=== PATIENT | male | born 1950 | race Caucasian/White ===

== ENCOUNTER 2020-10-21 16:51 | Outpatient (REF) | payer MEDICARE, SELFPAY ==
[2020-10-21 20:47] LABS: Abs Immature Grans 0.03 10^3/uL (0.0-0.06); Absolute Basophil Count 0.05 10^3/uL (0.0-0.2); Absolute Eosinophil Count 0.16 10^3/uL (0.0-0.7); Absolute Lymphocyte Count 1.52 10^3/uL (1.2-3.4); Absolute Monocyte Count 0.74 10^3/uL (0.1-0.8); Absolute Neutrophil Count 6.69 10^3/uL (1.2-6.7); Basophils % 0.5; Eosinophils % 1.7; HCT 44.8 % (40.0-50.0); HGB 14.7 g/dL (13.5-17.5); Immature Grans % 0.3; Lymphocytes % 16.5; MCH 29.9 pg (27.0-33.0); MCHC 32.8 % (32.0-36.0); MCV 91.1 fL (80-95); Monocytes % 8.1; Neutrophils % 72.9; Nucleated RBC 0 %; Platelet Count 218 10^3/uL (130-400); RBC 4.92 10^6/uL (4.36-5.78); RDW 12.3 % (11.8-14.1); RDW-SD 40.9 fL; WBC 9.19 10^3/uL (4.4-10.8)
[2020-10-21 21:12] LABS: ALT 16 U/L (16-63); AST 11 U/L (15-37); Albumin 3.8 g/dL (3.4-5.0); Alkaline Phosphatase 79 U/L (46-116); Anion Gap 7.8 mmol/L (3-11); BUN 20 mg/dL (7-18); Bilirubin, Total 0.6 mg/dL (0.2-1.0); CO2 30.2 mmol/L (21.0-32.0); CREATININE 1.4 mg/dL (0.70-1.30); Calcium 9.1 mg/dL (8.5-10.1); Calculated LDL 115 mg/dL (<100); Chloride 107 mmol/L (98-107); Cholesterol 189 mg/dL (<200); Estimated GFR 50.25 (mL/min/1.73m2); Glucose 110 mg/dL (74-106); HDL Cholesterol 41 mg/dL (40-60); Potassium 4.3 mmol/L (3.5-5.1); Sodium 145 mmol/L (136-145); Total Protein 6.8 g/dL (6.4-8.2); Triglyceride 168 mg/dL (<150)
[2020-10-21 21:19] LABS: Amylase 31 U/L (25-115); Lipase 106 U/L (73-393)
== END 2020-10-21 16:52 | disposition home or self-care (01) ==
LOC: NCHCN 16:51
PROVIDERS: PCP Family Medicine; Visit Provider Nurse Practitioner Family
DX: Z13.220 Encounter for screening for lipoid disorders (principal); R10.11 Right upper quadrant pain
CPT/HCPCS: 80053; 80061; 83690; 82150; 85025

== ENCOUNTER 2020-10-24 01:45 | Outpatient (CLI) | payer MEDICARE, OTHER, SELFPAY ==
--- NOTE | 2020-10-24 | DI.US_ITS ---
Exam(s) US ABDOMEN EXAM: US ABDOMEN CLINICAL HISTORY: RUQ PAIN, INTERMITTENT, R10.11, ? GALLSTONES TECHNIQUE: Ultrasound of complete upper abdomen performed using standard protocol. COMPARISON: CT ABD/PELVIS WO W CONTRAST from 11/03/2012 CT ABD/PELVIS WO W CONTRAST from 11/03/2012 FINDINGS: There is no ascites evident. LIVER: There are no hepatic lesions evident nor obvious dilatation of intrahepatic ducts. GALLBLADDER/BILIARY: There are multiple small gallstones in the gallbladder lumen. Gallbladder wall is slightly thickened. The common hepatic duct isnot dilated, measuring 3-4mm at the level of teresa hepatis. PANCREAS: There is no evidence of pancreatic mass nor dilatation of the pancreatic duct. SPLEEN: The spleen is not enlarged and there are no intrasplenic lesions evident. KIDNEYS:Both kidneys exhibit normal size and cortical thickness. No for significant findings in the right kidney. However, there is mild-moderate hydronephrosis of the left kidney noted. No significa nt narrowing of the cortical mantle. ABDOMINAL AORTA: There is no evidence of abdominal aortic aneurysm. IVC: Normal diameter where visualized. IMPRESSION: 1. Cholelithiasis. Also thickening of gallbladder wall. Correlation any clinical signs of acute ch olecystitis is recommended. The common hepatic duct is not dilated. 2. Unilateral left-sided hydronephrosis. This requires workup. 3. There is no ascites. DATA REPOSITORY:
== END 2020-10-24 02:05 ==
PROVIDERS: PCP Family Medicine; Visit Provider Nurse Practitioner Family
DX: K80.20 Calculus of gallbladder without cholecystitis without obstruction (principal); N13.30 Unspecified hydronephrosis
CPT/HCPCS: 76700

== ENCOUNTER → 2020-11-11 10:16 | Outpatient (BNVA) | payer MEDICARE, OTHER, SELFPAY | PROVIDERS: PCP Physician Assistant Medical; Referring Provider Physician Assistant Medical; Visit Provider Surgery | DX: K80.20 Calculus of gallbladder without cholecystitis without obstruction (principal); K57.30 Diverticulosis of large intestine without perforation or abscess without bleeding | CPT/HCPCS: 99203 ==

== ENCOUNTER 2020-11-18 02:47 | Outpatient (CLI) | payer MEDICARE, SELFPAY ==
[2020-11-18 13:05] LABS: Source Nasal/Nares
[2020-11-18 20:17] LABS: COVID-19 PCR Negative (Negative)
== END 2020-11-18 02:48 | disposition home or self-care (01) ==
PROVIDERS: PCP Physician Assistant Medical; Visit Provider Surgery
DX: Z20.822 Contact with and (suspected) exposure to COVID-19 (principal); Z01.818 Encounter for other preprocedural examination
CPT/HCPCS: 87635

== ENCOUNTER 2020-11-19 06:16 | Day surgery (SDC) | payer MEDICARE, OTHER, SELFPAY ==
[2020-11-19] VITALS (7 sets, daily range): BP systolic 104–135; BP diastolic 57–83; PULSE 67–73; RESP 16–23; TEMP 36.4–36.5; O2SAT 96–100; BMI 30.7
--- NOTE | 2020-11-19 04:44 | W.ANESPRE ---
General Info Date of Service Date Performed: 11/19/20 Height: 5 ft 4 in Weight: 81.363 kg Body Mass Index (BMI): 30.7 Surgical Procedure: Operation Date: 11/19/20 07:40 Proposed Procedures Side Surgeon p Cholecystectomy Laparoscopic Viki Son, DO Meds Allergies and Home Medications Allergies Allergy/AdvReac Type Severity Reaction Status Date / Time No Known Allergies Allergy Unverified 11/19/20 06:31 Home Medication Medication Instructions Recorded Unknown [No Known Home Meds] 01/20/13 Current Visit Medications: Current Medications Generic Name Dose Route Start Last Admin Trade Name Freq PRN Reason Stop Dose Admin Acetaminophen 1,000 mg 11/19/20 06:00 Acetaminophen 500 Mg Tab PO 11/19/20 16:00 PREOP JANA Gabapentin 300 mg 11/19/20 06:00 Gabapentin 300 Mg Cap PO 11/19/20 16:00 PREOP JANA Ringer's Solution 1,000 mls @ 80 mls/hr 11/19/20 06:00 IV 12/18/20 23:59 INFUSION JANA Cefazolin Sodium 2,000 mg/ 100 mls @ 200 mls/hr 11/19/20 06:00 Sodium Chloride IVPB 11/19/20 16:00 PREOP JANA IV Miscellaneous Supplies 1 each 11/19/20 06:00 Iv Access IV 12/18/20 23:59 DIRECTED JANA Sodium Chloride 0 ml 11/19/20 06:00 Normal Saline Flush 10 Ml Syr IV 12/18/20 23:59 PRN PRN Sodium Chloride 0 ml 11/19/20 06:00 Normal Saline 10 Ml Vial IJ 12/18/20 23:59 DIRECTED PRN Sterile Water 0 ml 11/19/20 06:00 Water,Injection,Sterile 10 Ml Vial IJ 12/18/20 23:59 DIRECTED PRN PFSH Active Problems Active Problems: Problem Status Onset Code Cholelithiasis K80.20 Sigmoid diverticulum K57.30 Prostatitis N41.9 Medical History Medical History Cholelithiasis Dental caries Hematuria Prostatitis Right upper quadrant pain Sigmoid diverticulum Tobacco Smoking/Tobacco Use Status: Never Alcohol Alcohol Intake: never Substance Use Substance use: Never Substance use type: does not use Vital Signs and Lab Results Vital Signs Most Recent Vital Signs in EMR: Temp Pulse Resp BP Pulse Ox 36.4 C L 73 16 135/83 99 11/19/20 06:26 11/19/20 06:26 11/19/20 06:26 11/19/20 06:26 11/19/20 06:26 Lab Results Blood Type / Crossmatch: No Data to Display Complete Blood Count: White Blood Count 9.19 10^3/uL (4.4-10.8) 10/21/20 16:30 10/21/20 Red Blood Count 4.92 10^6/uL (4.36-5.78) 10/21/20 16:30 10/21/20 Hemoglobin 14.7 g/dL (13.5-17.5) 10/21/20 16:30 10/21/20 Hematocrit 44.8 % (40.0-50.0) 10/21/20 16:30 10/21/20 Platelet Count 218 10^3/uL (130-400) 10/21/20 16:30 10/21/20 Complete Metabolic Panel: Sodium Level 145 mmol/L (136-145) 10/21/20 16:30 10/21/20 Potassium Level 4.3 mmol/L (3.5-5.1) 10/21/20 16:30 10/21/20 Chloride Level 107 mmol/L (98-107) 10/21/20 16:30 10/21/20 Carbon Dioxide Level 30.2 mmol/L (21.0-32.0) 10/21/20 16:30 10/21/20 Blood Urea Nitrogen 20 mg/dL (7-18) H 10/21/20 16:30 10/21/20 Creatinine 1.4 mg/dL (0.70-1.30) H 10/21/20 16:30 10/21/20 Estimated GFR/1.73 m2 50.25 (mL/min/1.73m2) 10/21/20 16:30 10/21/20 Calcium Level 9.1 mg/dL (8.5-10.1) 10/21/20 16:30 10/21/20 Albumin 3.8 g/dL (3.4-5.0) 10/21/20 16:30 10/21/20 Glucose Level 110 mg/dL (74-106) H 10/21/20 16:30 10/21/20 Liver Function Panel: Alanine Aminotransferase (ALT/SGPT) 16 U/L (16-63) 10/21/20 16:30 10/21/20 Aspartate Amino Transf (AST/SGOT) 11 U/L (15-37) L 10/21/20 16:30 10/21/20 Coagulation Panel: No Data to Display Cardiac Panel: No Data to Display Arterial Blood Gas: No Data to Display Venous Blood Gas: No Data to Display Pancreas Panel: Amylase Level 31 U/L (25-115) 10/21/20 16:30 10/21/20 Lipase 106 U/L (73-393) 10/21/20 16:30 10/21/20 Thyroid Panel: No Data to Display Infectious Disease: Coronavirus (COVID-19)(PCR) Negative (Negative) 11/18/20 09:11 11/18/20 Coronavirus 2019 Source Nasal/Nares 11/18/20 09:11 11/18/20 Blood Cultures: No Data to Display Toxicology Panel: No Data to Display Anesthesia Assessment and Plan Anesthesia History Personal History: No History of Anesthesia Complications Family History: No Family History of Anesthesia Complications Exercise Tolerance Exercise Tolerance: Metabolic Equivalents>4 Cardiac & Pulmonary Exam Cardiac Exam: Normal S1/S2 Heart Sounds Pulmonary Exam: Clear Bilateral Breath Sounds Airway Exam Known Difficult Airway: No Mallampati Class: 3 Mouth Opening: Normal (> 3cm) Thyromental Distance: Greater than 3 cm Neck Range of Motion: Limited ROM Neck Circumference: Normal Teeth Condition: Normal Dentition ASA Classification ASA Score: ASA 2 Emergency Case?: No NPO Status NPO Status: NPO Clears >2 hours, Solids >8 hours Anesthesia Plan Resuscitation Status: Full Code Anesthesia Technique: General Anesthesia Airway Planned: Natural Airway Monitors Used: Standard Monitors Preoperative Comments:: 70 yo male for lap harpreet for cholelithiasis.
[2020-11-19] MEDS: Gabapentin 300 MG CAP PO (06:38)
[2020-11-19] MEDS: Acetaminophen 500 MG TAB 1000 MG PO (06:38)
[2020-11-19] MEDS: Lactated Ringers 1,000 ML 80 ML IV (06:50)
[2020-11-19] MEDS: ceFAZolin 2,000 MG in Normal Saline 100 ML 200 MG IVPB (07:34)
--- NOTE | 2020-11-19 08:40 | GB_PTH ---
PATIENT: Kei Welch LOC: [facility] U#:[id number] AGE/SX: 70/M ROOM: RE11/19/[address]: Viki Son : 1950 BED: DIS: 11/19/2020 SPEC #: [id number] RECD: 11/19/20 12:28 STATUS: KIRSTY REQ #: [id number] ANDRES: 11/19/20 08:[address]: Viki Son DEPT: Surgical Specimen RECD BY: Melita Schulz ENTERED: 11/19/20 12:28 SP TYPE: GB OTHR DR: Danny Hale Tissues: 1 - GALLBLADDER Procedures: GROSS AND MICRO LEVEL 3 Comments: [id number]
--- NOTE | 2020-11-19 09:01 | W.PM.OP ---
Date of service: 11/19/20 Time of Service: 09:01 Operative Note Operative Note DATE OF PROCEDURE: 11/19/20 PRE-OP DIAGNOSIS: /umbilical hernia POST-OP DIAGNOSIS: same PROCEDURE: lap harpreet SURGEON: Viki Pratt MANAGER BUSINESS PROCESS: Komal Neal ANESTHESIA TYPE: Local By Surgeon and General LMA/ETT Refer to Anesthesia Record ESTIMATED BLOOD LOSS: 5 PATHOLOGY: other COMPLICATIONS: None Patient was transported to: PACU Procedure Description: The pt is seen at the request of there PCP regarding acute on chronic cholecystitis, cholelithiasis. The pt has failed outpt conservative medical measures and is here today for laparoscopic cholecystectomy. Informed consent was obtained, explaining risks and benefits of the procedure including but not limited to bleeding, infection, pneumonia, blood clots, possible damage to bowel, bladder, blood vessels, bile ducts, possible open procedure, complications of general anesthesia and other unforetold complications. PROCEDURE: The patient agrees and is brought to the operative room suite and placed in supine position. Anesthesia was administered per the Department of Anesthesia. The patient did receive IV antibiotics. NG tube and Gilman catheter are placed. The patient was prepped and draped in the usual sterile fashion using DuraPrep scrub solution. Pause for the cause was done. 20 mL of 1% buffered lidocaine was used for local anesthetization. A stab incision was made in the umbilicus and the Verres inserted. Drop test was positive and insufflation was begun. When 15 mm of pressure was noted on the monitor, the Veress was removed and #5 port inserted. The camera was inserted through the port and shows no damage to underlying structures. A 10 mm port was then placed in the epigastric position under direct visualization following creation of local field blocks as well as two 5 mm ports in the right upper quadrant. The gallbladder fundus was grasped and retracted towards the right shoulder. Infundibulum was grasped and retracted laterally. The hepat-duodenal ligament is entered. The cystic duct and artery are dissected out and the most inferior portion of the gallbladder plate is removed from the liver and the critical view of safety was obtained after clearing away all fatty material. Endo Clips were placed across the duct and artery and these structures are divided. The remainder of the gallbladder was excised from the liver bed. The gallbladder was placed in a bag and brought out. Examination of the gallbladder shows indeed the cystic duct and artery to have been divided. The remainder of the abdomen was copiously irrigated with a liter of saline. All saline is removed. There is no bleeding or bile leakage from the liver bed or the clips sites. An EndoClose needle was used to close the 10 mm port site with an 0 Vicryl. All ports and instruments are removed. Patient also had a incidental umbilical hernia. This is repaired with 0 Vicryl. Mesh was not placed for fear of infection. SPonge and needle counts are correct. Pneumoperitoneum is evacuated and the port sites are monitored to make sure there is no bleeding at the time of desufflation. Port sites are irrigated and the skin is closed with 4-0 Monocryl in a running subcuticular fashion. Skin glue sterile dressings are applied. The patient tolerated the procedure well without complications, transferred to the recovery room in stable condition. VIKI PRATT DO
--- NOTE | 2020-11-19 09:09 | PDOC.DSDIS_ITS ---
Discharge Plan Disposition Patient Disposition: HOME Condition: Good Discharge Details Reason For Visit: gallbladder removal/hernia repair Attending Provider: Viki Son Primary Care Provider: Danny Hale Home Meds and New Rx's Prescriptions: New tramadol [Ultram] 50 mg tablet 50 mg PO Q6H PRNQty: 10 RF: 0 ondansetron HCl [Zofran] 4 mg tablet 4 mg PO Q6H PRNQty: 3 RF: 0 ibuprofen 600 mg tablet 600 mg PO Q6H PRNQty: 90 RF: 0 Discharge Instructions Additional Instructions: Care after Gallbladder Surgery -Pain control: For the first 72 hours after surgery, take you pain meds continuously and not just when you have pain. Alternate Tylenol 1000mg by mouth every 8 hours, and Ibuprofen 600mg every 6 hours. Make sure you take ibuprofen with food and not on an empty stomach. Use the tramadol for breakthrough pain- pain that is greater than a 7. - Use ICE! Ice really helps to keep the swelling down, and swelling causes pain. Twenty minutes on, and then off, continuously for the first 72hours. After the first 72hrs, you can just use the Tylenol, ibuprofen or Celebrex, and ice, when you have pain. If you are taking narcotic pain medication, follow the instructions on the label and do not drive. Pain medications can make you very constipated. Make sure you are moving your bowels daily. If not, take Miralax, milk of magnesia or magnesium citrate. - Anesthesia makes you very constipated. Take a dose of milk of magnesia the morning after surgery. ? Use an ice bag for the first 72 hours. This helps to decrease swelling, which causes pain. It is normal to be more sore/painful and swollen towards the end of the day and first thing in the morning. ? Gallbladder surgery can make you very nauseated; use Zofran for nausea, for the first 24 hours. The nausea generally stops after 24 hours. ? Use milk of magnesia or prune juice to prevent constipation (this is a particular side effect of pain medication and anesthesia). Do not allow yourself to become constipated. ? Avoid fatty or greasy foods; introduce these slowly, with care, after about 1 month. High-fat foods include: ? Foods that are fried, like Armenian fries and potato chips ? High-fat meats, such as reddy, bologna, sausage, ground beef, and ribs, pork products ? High-fat dairy products, such as cheese, ice cream, cream, whole milk, and sour cream ? Pizza ? Foods made with lard or butter ? Creamy soups or sauces ? Meat gravies ? Chocolate ? Oils, such as palm and coconut oil ? Skin of chicken or turkey Nuts and nut butters [place]adoes ? Start out eating very small, bland amounts of food. Do not take pain pills on an empty stomach. - You will notice purple discoloration around the incisions. This is the ?skin glue?. This will wear off on its own. It is OK to shower after 24hrs. You do not need to cover the incisions. - -You should walk frequently, gradually, increasing the distance. You may climb stairs, just go slowly. ? Do not go swimming or sit in a hot tub for two weeks. ? There are no stitches to remove. ? Do not drive your car x72hrs and then only if you have no pain and can move freely. Do not drive if you are taking pain narcotic pain medications. ? You may resume sexual activity whenever pain and soreness subside, usually in 2 weeks. ? Do no lift anything over 5 lbs. for two weeks. ? You may return to work in one week, or when you feel able, provided you do not have to do any heavy lifting or prolonged standing. ? You should return to Dr. Son?s office for a post-op appointment about one week after surgery. F/u 12/02 @ 9:30 Surg Asso: [phone] My Medications for pain and nausea are: Celebrex and ultram, and zofran When to Call the Office: ? If the incision becomes red or swollen, or there is more than a little drainage from it. ? If you develop a temperature higher than 100.5 F. ? If your eyes turn yellow ? Vomiting and can?t keep fluids down Activity:: see above Remove Dressings/Wound Care:: 24 hours Shower/Bathe:: 24 hours Diet:: low fat Discharge Orders Discharge Orders: Discharge Order (Routine); Ordered 11/19/20 Ordered By: Viki Son DS: Diagnosis Discharge Diagnosis (1) Cholelithiasis: Status: Acute (2) Umbilical hernia: Status: Acute
--- NOTE | 2020-11-19 10:24 | W.ANESPOSTOP ---
Postoperative Evaluation Date, Time and Location Date Performed: 11/19/20 Time Performed: 10:25 Patient Location: Day Surgery Unit Vital Signs Most Recent Imported Vital Signs: Most Recent Vital Signs Temp Pulse Resp BP Pulse Ox 36.4 C L 72 16 113/64 96 11/19/20 09:48 11/19/20 09:48 11/19/20 09:48 11/19/20 09:48 11/19/20 09:48 Pain Score Most Recent Pain Score: Most Recent Pain Score Pain Level 0 11/19/20 09:48 Assessment Mental Status: Awake (Alert & Oriented to Patient Baseline) Airway and Respiratory Function: Patent airway with normal (patient baseline) respiratory exam Cardiovascular Function: Hemodynamically Stable Hydration Status: Adequately Hydrated Nausea & Vomiting: No Nausea or Vomiting Pain: Pt. Denies Any Pain Peripheral Nerve Block: Patient did not receive a nerve block Postoperative Comments:: slight dizziness with ambulating to bathroom, advised slow movements
--- NOTE | 2020-11-19 10:25 | W.ANESPOSTOP ---
Postoperative Evaluation Date, Time and Location Date Performed: 11/19/20 Time Performed: 10:25 Patient Location: PACU Vital Signs Most Recent Imported Vital Signs: Most Recent Vital Signs Temp Pulse Resp BP Pulse Ox 36.4 C L 72 16 113/64 96 11/19/20 09:48 11/19/20 09:48 11/19/20 09:48 11/19/20 09:48 11/19/20 09:48 Pain Score Most Recent Pain Score: Most Recent Pain Score Pain Level 0 11/19/20 09:48 Assessment Mental Status: Awake (Alert & Oriented to Patient Baseline) Airway and Respiratory Function: Patent airway with normal (patient baseline) respiratory exam Cardiovascular Function: Hemodynamically Stable Hydration Status: Adequately Hydrated Nausea & Vomiting: No Nausea or Vomiting Pain: Pt. Denies Any Pain Peripheral Nerve Block: Patient did not receive a nerve block
== END 2020-11-19 10:48 | disposition home or self-care (01) ==
PROVIDERS: PCP Physician Assistant Medical; Visit Provider Surgery
PROC: 0FT44ZZ Resection of Gallbladder, Percutaneous Endoscopic Approach (ICD-10-PCS; CPT 47562; principal; 2020-11-19 07:30)
DX: K80.10 Calculus of gallbladder with chronic cholecystitis without obstruction (principal)
CPT/HCPCS: 47562; 88304; J0690; J1100; J1885; J2001; J2405; J2704; J3475

== ENCOUNTER → 2020-12-02 09:18 | Outpatient (BNVA) | payer MEDICARE, SELFPAY | PROVIDERS: PCP Physician Assistant Medical; Referring Provider Physician Assistant Medical; Visit Provider Surgery | DX: Z48.815 Encounter for surgical aftercare following surgery on the digestive system (principal); Z90.49 Acquired absence of other specified parts of digestive tract; K42.9 Umbilical hernia without obstruction or gangrene ==

== ENCOUNTER 2022-10-12 13:29 | Outpatient (REF) | payer MEDICARE, SELFPAY ==
[2022-10-12 17:14] LABS: Abs Immature Grans 0.02 10^3/uL (0.0-0.06); Absolute Basophil Count 0.04 10^3/uL (0.0-0.2); Absolute Eosinophil Count 0.14 10^3/uL (0.0-0.7); Absolute Lymphocyte Count 1.22 10^3/uL (1.2-3.4); Absolute Monocyte Count 0.48 10^3/uL (0.1-0.8); Absolute Neutrophil Count 4.78 10^3/uL (1.2-6.7); Basophils % 0.6; Eosinophils % 2.1; HGB 15.4 g/dL (13.5-17.5); Immature Grans % 0.3; Lymphocytes % 18.3; MCH 29.8 pg (27.0-33.0); MCHC 32.8 % (32.0-36.0); MCV 91 fL (80-95); MPV 10.1 fL (8.0-11.0); Monocytes % 7.2; Neutrophils % 71.5; Platelet Count 186 10^3/uL (130-400); RBC 5.17 10^6/uL (4.36-5.78); RDW 12.6 % (11.8-14.1); RDW-SD 41.8 fL; WBC 6.68 10^3/uL (4.4-10.8)
[2022-10-12 17:56] LABS: ALT 22 U/L (16-63); AST 21 U/L (15-37); Albumin 3.9 g/dL (3.4-5.0); Alkaline Phosphatase 87 U/L (46-116); Anion Gap 6.9 mmol/L (3-11); BUN 19 mg/dL (7-18); Bilirubin, Total 0.7 mg/dL (0.2-1.0); C-Reactive Protein 0.12 mg/dL (0.0-0.3); CO2 29.1 mmol/L (21.0-32.0); CREATININE 1.1 mg/dL (0.70-1.30); Calcium 9.4 mg/dL (8.5-10.1); Chloride 105 mmol/L (98-107); Estimated GFR 72.22 (mL/min/1.73m2); Glucose 106 mg/dL (74-106); Potassium 4.9 mmol/L (3.5-5.1); Sodium 141 mmol/L (136-145); Total Protein 7.4 g/dL (6.4-8.2)
[2022-10-14 11:07] LABS: HIV-1/2 Ag & Ab Screen Negative (Negative)
[2022-10-14 11:08] LABS: Hepatitis C Ab w Rflx HCV PCR Negative (Negative)
== END 2022-10-12 13:30 | disposition home or self-care (01) ==
LOC: NCHCN 13:29
PROVIDERS: PCP Physician Assistant Medical; Visit Provider Family Medicine
DX: H35.62 Retinal hemorrhage, left eye (principal); Z00.00 Encounter for general adult medical examination without abnormal findings
CPT/HCPCS: 80053; 86803; 87389; 85025; 86140

== ENCOUNTER 2023-07-30 02:27 | Inpatient (IN) | payer MEDICARE, SELFPAY ==
[2023-07-30] VITALS (107 sets, daily range): BP systolic 127–175; BP diastolic 64–86; PULSE 92–105; RESP 13–35; TEMP 36.4–37.5; O2SAT 85–97
--- NOTE | 2023-07-30 02:30 | RT.EKG_ITS ---
APPROVED REPORT Exam: Resting ECG Reason for Exam: short of breath Patient Location: E HR:103 bpm ECG Measurements Heart Rate 103 AXIS CO 142 P 60 QRSd 93 QRS 65 QT 333 T 19 QTc 436 Conclusion Sinus tachycardia...rate> 99 Inferior infarct, old...Q >35mS, II III aVF
--- NOTE | 2023-07-30 02:45 | DI.CT_ITS ---
Exam(s) CT ABDOMEN PELVIS WO EXAM: CT ABDOMEN PELVIS WO CLINICAL HISTORY: abdominal distention, pain, vomiting, unable to ea. TECHNIQUE: Imaging Protocol: Axial computed tomography images with coronal and sagittal reformatted images were created and reviewed. COMPARISON: CT ABD/PELVIS WO W CONTRAST from 11/03/2012 FINDINGS: ABDOMEN: Lung Bases: Coronary artery calcifications are present. There is a small hiatal hernia. Linear infi ltrates are seen in the lung bases bilaterally. Differential considerations include scarring, atelec tasis or developing pneumonia. Please correlate clinically. Liver: Normal density. No measurable mass. Gallbladder and biliary tract: Status post cholecystectomy. There is no biliary ductal dilatation. Pancreas: Normal density, no abnormal calcifications or inflammatory process. Spleen: Normal. Kidneys: Normal size, contour and axis.No calculi are seen. In the mid left ureter, there is soft ti ssue thickening surrounding the ureter and lying on top of the left psoas muscle (series 3, image 466 ). This measures 2.3 x 2 cm. Proximally, there is marked left hydronephrosis. The left ureter is o f normal caliber distally. No renal mass is identified. Adrenal glands: No mass is seen. Lymph nodes: Within normal limits. Abdominal Aorta: Abdominal portion non-dilated. Atherosclerotic calcification is present. PELVIS: Bladder:There is a catheter in place. Air is seen within the urinary bladder likely reflecting cathet erization. Bowel: No obstruction or bowel wall thickening. The stomach is incompletely distended limiting evalua tion. There is no evidence of appendicitis. Peritoneal cavity: No ascites, collection or mesenteric inflammatory response. No free air. Reproductive organs: The prostate gland is markedly enlarged. Bones: Within normal limits. Soft Tissues: Within normal limits. IMPRESSION: 1. There is marked left hydronephrosis to the level of the mid left ureter. There is surrounding soft tissue of the mid ureter as it overlies the left psoas muscle. Differential considerations include n eoplasm, inflammation or infection. This appears to be the source of the hydronephrosis. No stone is identified. 2. Stranding is seen around the left kidney. This may be secondary to the hydronephrosis. Pyelonephri tis cannot be excluded. Please correlate clinically. 3. Marked enlargement of the prostate gland. 4. Linear infiltrate seen in the lung bases which may represent atelectasis, pneumonia or scarring. P lease correlate with patient's clinical symptoms. 5. No evidence of nephrolithiasis. Unexpected findings RADIATION DOSE DELIVERED: 793.73mGy.cm Total DLP DATA REPOSITORY: All CT scans at this facility are submitted to the National Radiology Data Registry (NRDR) Dose Index Registry (DIR) with the [employer] ([employer]). RADIATION OPTIMIZATION: All CT scans at this facility use at least one of these dose optimization te chniques: automated exposure control; mA and/or kV adjustment per patient size (includes targeted exa ms where dose is matched to clinical indication); or iterative reconstruction.
--- NOTE | 2023-07-30 02:55 | DI.RAD_ITS ---
Exam(s) XR CHEST 1V IN DI DEPT EXAM: XR CHEST 1V IN DI DEPT CLINICAL HISTORY: shortness of breath TECHNIQUE: 2D digital imaging was performed of the chest. One image was obtained. An AP view was ob tained. COMPARISON: No exams were available for comparison FINDINGS: MEDIASTINUM: Normal. HEART: Normal. PULMONARY VASCULATURE: Normal. LUNGS: There is atelectasis seen in the right lung base. PLEURAL SPACE: No pleural effusion or pneumothorax. BONE:Within normal limits for the patient's age. OTHER FINDINGS:Surgical clips are seen in the right upper quadrant of the abdomen which may reflect p rior cholecystectomy. IMPRESSION: No acute pulmonary findings. Right basilar atelectasis. DATA REPOSITORY: RADIATION DOSE DELIVERED:
--- NOTE | 2023-07-30 02:57 | ED.GENADUL_ITS ---
Discharge Plan Disposition Patient Disposition: Admit to [facility] Condition: Improving Discharge Details Chief Complaint: Abd Prob Clinical Impression: Uremic acidosis, Acute renal failure, Acute bilateral obstructive uropathy Primary Care Provider: Danny Hale ED Provider: Tristen Abrams Home Meds and New Rx's Prescriptions: No Action No Known Home Meds HPI General Date/Time Provider Initiated Documentation: 07/30/23 02:39 . HPI Narrative: The patient is a 72-year-old male, who presents to the emergency department this evening from his plane flight home from the [facility], complaining of the inability to eat or drink for almost the entire week he was there, weakness, and now shortness of breath. The patient had some abdominal pain and nausea which began on Wednesday while in the [facility]. Prior to this the patient has felt relatively well. His says that he spent most of the rest of the week in bed with very little to eat or drink. He did have some vomiting initially on Wednesday when the diffuse abdominal discomfort and nausea began, but had no further vomiting or diarrhea throughout the week. The patient tells me that his last bowel movement was this morning, but that it was quite small. The patient has made very little urine today according to the , less than 100 cc. The patient denies having abdominal pain now but says that he feels somewhat distended. The shortness of breath began within the last 24 hours. There have been no fevers or chills reported. The patient denied any urinary symptoms. The patient denies any chest pain. Related Data Home Medications Medication Instructions Recorded Confirmed Unknown [No Known Home Meds] 12/02/20 07/30/23 Allergies Allergy/AdvReac Type Severity Reaction Status Date / Time No Known Allergies Allergy Unverified 07/30/23 02:32 General Stated Complaint: Abd Prob LANDY: 3 Exam Const General: cooperative, acute distress mild, ill appearing and lethargic Eyes General: appearance normal, both eyes and all related structures Conjunctivae: conjunctivae normal Sclera: sclerae normal Pupils: PERRL Neck Neck: full ROM, no lymphadenopathy and JVD Resp Effort & Inspection: tachypneic Auscultation: clear to auscultation bilaterally Cardio Jugular venous pressure: JVD elevated Rate: tachycardic Rhythm: regular rhythm Heart Sounds: S1 normal and S2 normal GI Inspection: distended Palpation: firm and nontender Auscultation: high-pitched sounds Skin General skin exam: no rashes or lesions noted and turgor normal Lesions: no lesions Rashes: no rashes Trauma: no lacerations or abrasions Neuro General: patient alert, patient awake, patient oriented x3 and CN's II-XI intact bilaterally Cranial Nerves: CN's II-XI intact bilaterally Speech: speech normal Motor: no movement abnormalities noted and strength abnormal Sensory Exam: no sensory deficits noted Extrem General: normal to inspection, full ROM and no clubbing, cyanosis or edema Course Vital Signs Vital signs: Vital Signs Temperature 36.4 C L 07/30/23 02:33 Pulse 103 H 07/30/23 02:33 Respiratory Rate 20 07/30/23 02:33 Blood Pressure 175/81 H 07/30/23 02:33 Pulse Oximetry 92 07/30/23 02:33 Temperature 36.4 C L 07/30/23 02:33 Temperature Source Tympanic 07/30/23 02:33 Pulse 102 H 07/30/23 02:34 Pulse 105 H 07/30/23 02:40 Respiratory Rate 23 07/30/23 02:40 Respiratory Effort Labored 07/30/23 02:41 Blood Pressure 175/81 H 07/30/23 02:34 Blood Pressure Mean 110 07/30/23 02:34 Blood Pressure Position Supine 07/30/23 02:33 Pulse Oximetry 90 L 07/30/23 02:40 Oxygen Delivery Method Room Air 07/30/23 02:33 Oxygen Flow Rate 0 07/30/23 02:33 Pain Level 0 07/30/23 02:33 Comment 84.1 kg weight 07/30/23 02:33 Medical Decision Making The patient was seen and examined. He does appear to be lethargic and is tachypneic with some mild hypoxemia here in the emergency department. The patient is hypertensive and tachycardic with a mildly low temperature. His respiratory rate is not consistent with Kussmaul or Samuel-Sherwood breathing, but his respiratory rate is quite fast considering he has normal auscultations in his lung lal bilaterally. I question whether or not the respiratory symptoms are simply a function of a larger constitutional pathology. The patient's abdomen is clearly distended with high-pitched bowel sounds. I would be surprised if there is not some form of an obstructive pathology within his bowel . The patient had a bladder scan obtained, after the report that he had produced almost no urine today. The initial bladder scans revealed retained urine greater than 900 cc. I have asked the Garcia catheter be placed to see if there is a copious amount of retained urine. When concerned that the patient could potentially be acidotic, which may be driving some of his respiratory effort. The patient has had no reported fevers or chills and is relatively hypertensive, leading me to think that this does not necessarily represent a septicemia. Given the patient's age, he could have some problems with myocardial function with this much physiologic stress, and could be having some subendocardial ischemia. The patient's EKG is a sinus tachycardia but there are no repolarization abnormalities that would be consistent with acute ischemia or pattern injury ischemia. The patient will have a full set of laboratory workup, a chest x-ray, and a noncontrasted CT scan of the abdomen pelvis to determine if there is an underlying obstructive process in either the urine collecting system or more likely the bowels. The patient will almost assuredly require admission as he is unlikely to have stopped producing urine without endorgan damage to his kidneys. He is also oxygen requiring to maintain a relatively normal oxygen level and respiratory pattern here in the emergency room. Further disposition planning can be started once more data has been obtained. 0320 - The garcia catheter placement produced more than 2 L of a brown/tea colored urine. There was clearly going to be some significant injury to the kidney based on this postobstructive uropathy. Other labs continue to be pending at this time. The patient is much less distended after the Garcia catheter was placed. We will continue on with a noncontrasted CT scan of the abdomen pelvis to see if there is concomitant ileus or bowel obstruction related to this uropathy. [id number] - I discussed this case with the on-call nephrology fellow and the hospitalist service at [facility]. The nephrology fellow felt like the patient was not a candidate for urgent or emergent dialysis, despite the fact that the patient has some encephalopathy related to his uremia. The case was then discussed with the hospitalist service to agree that they would be willing to take the patient, however the transfer center and medical artist had asked that the patient have 4-hour repeat basic metabolic profile and VBG to determine if the patient were improving these levels sufficiently. And then to be discussed with our hospitalist service whether or not they be willing to keep the patient here at our facility. The patient did have a normal improvement in their BUN and creatinine levels from 120/13 to 110/10. The patient does continue to put out approximately 850 cc of urine over the course of the last 1.5 hours. The patient has continued to have an oxygen saturation in the low 90s on 2 L but the respiratory rate, blood pressure, and heart rate have all improved. The patient says that he is feeling better. He continues to be mildly encephalopathic with weakness and a diminished voice. I will discuss the case with the [facility] hospitalist here at an [facility] and determine if they be willing to admit the patient for observation, or whether or not they would like me to recontact the [facility] about the possibility of transfer. 07 - I discussed the case with Dr. Jones, from the hospitalist service, who agreed to admit the patient for observation and hydration to determine if his renal function will improve with conservative therapy. I will being LR at 150 cc/hr for hydration after discussion with the hospitalist. Quality:SDOH Health Related Social Needs: No Data to Display PFSH All Active Problems (Updated 07/30/23 @ 07:39 by Tristen Abrams MD) Acute bilateral obstructive uropathy (Acute) Acute renal failure (Acute) Uremic acidosis (Acute) Umbilical hernia (Acute) Cholelithiasis (Acute) Sigmoid diverticulum (Acute) Prostatitis (Acute) Medical History (Updated 07/30/23 @ 07:39 by Tristen Abrams MD) Right upper quadrant pain Hematuria Dental caries Social History Smoking/Tobacco Use Status: Never Smoking risk assessment performed?: Yes Alcohol Intake: former Drug use: Never Substance use type: does not use Do you feel safe at home: Yes Do you feel safe in your relationship?: Yes
[2023-07-30 03:04] LABS: BE (Venous) -10 mmol/L (-2-3); HCO3 (Venous) 16 mmol/L (23-28); O2 Sat (Venous) 72 %; TCO2 (Venous) 15 mmol/L (24-29); pCO2 (Venous) 32 mmHg (41-51); pH (Venous) 7.31 (7.31-7.41); pO2 (Venous) 42 mmHg
[2023-07-30 03:05] LABS: Lactate 1.8 mmol/L (0.6-1.4)
[2023-07-30 03:13] LABS: Abs Immature Grans 0.33 10^3/uL (0.0-0.06); Absolute Eosinophil Count 0.02 10^3/uL (0.0-0.7); Absolute Lymphocyte Count 0.81 10^3/uL (1.2-3.4); Absolute Monocyte Count 2.03 10^3/uL (0.1-0.8); Basophils % 0.4; Eosinophils % 0.1; HCT 43.8 % (40.0-50.0); HGB 15.1 g/dL (13.5-17.5); Immature Grans % 1.7; Lymphocytes % 4.2; MCH 30.6 pg (27.0-33.0); MCHC 34.5 % (32.0-36.0); MCV 89 fL (80-95); MPV 9.8 fL (8.0-11.0); Monocytes % 10.5; Neutrophils % 83.1; Platelet Count 209 10^3/uL (130-400); RBC 4.93 10^6/uL (4.36-5.78); RDW 13.3 % (11.8-14.1); WBC 19.36 10^3/uL (4.4-10.8)
[2023-07-30 03:22] LABS: Bilirubin Negative (Negative); Blood Trace-intact (Negative); Clarity Sl Cloudy (Clear); Glucose Negative (Negative); Ketones Negative (Negative); Leukocyte Esterase Negative (Negative); Nitrite Negative (Negative); Specific Gravity >= 1.030 (1.005-1.025); Urobilinogen 0.2 mg/dL (Up to 0.2)
[2023-07-30 03:24] LABS: ALT 22 U/L (16-63); AST 9 U/L (15-37); Albumin 3.2 g/dL (3.4-5.0); Alkaline Phosphatase 121 U/L (46-116); Bilirubin, Total 0.9 mg/dL (0.2-1.0); Chloride 94 mmol/L (98-107); Estimated GFR 3.45 (mL/min/1.73m2); Glucose 124 mg/dL (74-106); Lipase 36 U/L (16-77); Magnesium 2.8 mg/dL (1.8-2.4); Potassium 4.7 mmol/L (3.5-5.1); Sodium 133 mmol/L (136-145); Total Protein 7.8 g/dL (6.4-8.2); Troponin I < 50 ng/L (< or =60)
[2023-07-30 03:28] LABS: Absolute Basophil Count 0.08 10^3/uL (0.0-0.2); Absolute Neutrophil Count 16.09 10^3/uL (1.2-6.7); Diff Comment Diff Reviewed; RBC Morphology Normal
[2023-07-30 03:30] LABS: Bacteria Rare HPF (Negative); C & S Indicated? No; Casts Negative LPF (Negative); Crystals Negative HPF (Negative); Epithelial Cells Negative HPF (Negative); Mucus Negative (Negative); RBC 0-2 HPF (0-2); WBC Negative HPF (0-5)
[2023-07-30] MEDS: Lidocaine 2% Jelly 11 ML SYR UR (03:31)
[2023-07-30 03:33] LABS: NT-proBNP 473 pg/mL (<300)
[2023-07-30 03:38] LABS: BUN 120 mg/dL (7-18); CREATININE 13.8 mg/dL (0.70-1.30)
[2023-07-30 04:00] LABS: COVID-19 PCR Negative (Negative); Influenza A PCR Negative (Negative); Influenza B PCR Negative (Negative); RSV PCR Negative (Negative)
[2023-07-30 04:11] LABS: Source Nasopharynx
--- NOTE | 2023-07-30 04:52 | DI.VRAD_ITS ---
PROCEDURE INFORMATION: Exam: XR Chest Exam date and time: 07/30/2023 4:00 AM Age: 72 years old Clinical indication: Shortness of breath TECHNIQUE: Imaging protocol: Radiologic exam of the chest. Views: 1 view. COMPARISON: CT ABDOMEN PELVIS WO 07/30/2023 3:53 AM FINDINGS: Lungs: Apical lordotic projection. Subsegmental atelectasis at the base of the right lung. Lungs otherwise clear. Pleural spaces: Unremarkable. No pleural effusion. No pneumothorax. Heart/Mediastinum: Unremarkable. No cardiomegaly. Bones/joints: Unremarkable. Gastrointestinal tract: Incompletely visualized gas distended colon in the upper abdomen. IMPRESSION: Incompletely visualized gas distended colon in the upper abdomen. Dictated and Authenticated by: Kwasi Mcfadden MD. Ordering:MAYRA Ramon MD
--- NOTE | 2023-07-30 04:57 | DI.VRAD_ITS ---
PROCEDURE INFORMATION: Exam: CT Abdomen And Pelvis Without Contrast Exam date and time: 07/30/2023 3:53 AM Age: 72 years old Clinical indication: Vomiting; Abdominal pain; Additional info: Abdominal distention, pain, vomiting, unable to eat TECHNIQUE: Imaging protocol: Computed tomography of the abdomen and pelvis without contrast. COMPARISON: US ABDOMEN 10/24/2020 11:02 AM FINDINGS: Lungs: Bibasilar atelectasis. Diaphragm: Small hiatal hernia. Liver: Normal. No mass. Gallbladder and bile ducts: Prior cholecystectomy. No biliary ductal dilatation. Pancreas: Unremarkable. Spleen: Normal. Adrenal glands: Normal. No mass. Kidneys and ureters: There is moderate to severe left-sided hydronephrosis, without hydroureter. No obstructive urolithiasis. The proximal left ureter appears thickened and/or surrounded by dense inflammatory stranding. There is inflammatory fat stranding surrounding the left renal pelvis and along most of the ureter. Findings suggest an obstructive process at the left UPJ or proximal left ureter, potentially a ureteral malignancy, blood clot, or infectious debris in the lumen of the ureter. Stranding adjacent to the left renal pelvis may be due to obstructive uropathy or could signify pyelonephritis. Consider repeat study with IV contrast and delayed/excretory phase imaging if patient can tolerate. Stomach and bowel: Mild gaseous distention of the nondependent portions of the bowel may contribute to patient discomfort but is not pathologic. No bowel wall thickening or intestinal obstruction. No pneumatosis or portal/mesenteric venous gas. Appendix: Normal appendix. Intraperitoneal space: No pneumoperitoneum or abscess. Vasculature: See Stomach and bowel finding. Lymph nodes: Unremarkable. Urinary bladder: Unremarkable as visualized. Reproductive: Substantial prostatomegaly. Bones/joints: Unremarkable. No acute fracture. Soft tissues: Unremarkable. IMPRESSION: There is moderate to severe left-sided hydronephrosis, without hydroureter. No obstructive urolithiasis. The proximal left ureter appears thickened and/or surrounded by dense inflammatory stranding. There is inflammatory fat stranding surrounding the left renal pelvis and along most of the ureter. Findings suggest an obstructive process at the left UPJ or proximal left ureter, potentially a ureteral malignancy, blood clot, or infectious debris in the lumen of the ureter. Stranding adjacent to the left renal pelvis may be due to obstructive uropathy or could signify pyelonephritis. Consider repeat study with IV contrast and delayed/excretory phase imaging if patient can tolerate. Dictated and Authenticated by: Kwasi Mcfadden MD. Ordering:MAYRA Ramon MD
[2023-07-30 06:35] LABS: BE (Venous) -6 mmol/L (-2-3); HCO3 (Venous) 20 mmol/L (23-28); O2 Sat (Venous) 73 %; TCO2 (Venous) 18 mmol/L (24-29); pCO2 (Venous) 37 mmHg (41-51); pH (Venous) 7.34 (7.31-7.41); pO2 (Venous) 42 mmHg
[2023-07-30 06:54] LABS: Anion Gap 18.2 mmol/L (3-11); CO2 19.8 mmol/L (21.0-32.0); Calcium 8.8 mg/dL (8.5-10.1); Chloride 97 mmol/L (98-107); Estimated GFR 4.96 (mL/min/1.73m2); Glucose 108 mg/dL (74-106); Potassium 4.4 mmol/L (3.5-5.1); Sodium 135 mmol/L (136-145)
[2023-07-30 06:56] LABS: BUN 110 mg/dL (7-18); CREATININE 10.2 mg/dL (0.70-1.30)
[2023-07-30 07:09] LABS: Troponin I < 50 ng/L (< or =60)
[2023-07-30] MEDS: Lactated Ringers 1,000 ML 150 ML IV ×2 (07:51→16:20)
--- NOTE | 2023-07-30 10:24 | HPE_ITS ---
Date of service: 07/30/23 Time of Service: 10:25 Assessment and Plan Assessment and plan (1) Acute bilateral obstructive uropathy: Status: Acute Assessment and plan: Per recommendation of urology, Dr Flaherty, we will continue catheter drainage until his renal function stabilizes. If his renal function does not improve with catheter drainage alone as we would expect, urology will consider placing a left ureteral stent. Once his renal function has stabilized, urology will consider treatment options, with surgery being considered. PSA pending LR 150 ml/h (2) Acute renal failure: Status: Acute Assessment and plan: Continue LR - trend Cr Discussed with Dr Hull and Dr Flaherty History of Present Illness History of Present Illness Chief Complaint: Nausea, unable to void Narrative: This is a 72 year old male patient with past medical history of cholelithiasis, sigmoid diverticulum, prostatitis and umbilical hernia who presented to the [facility] ED last gildardo for evaluation of Inability to eat or drink: The patient experienced difficulty eating or drinking for almost the entire week while in the [place]. The patient reported feeling weak, having shortness of breath, abdominal pain and nausea which started on Wednesday while in the [place]. Patient reported there was some initial vomiting, but no further vomiting or diarrhea throughout the week. He endorses decreased urine output: Less than 100 cc today. Patient had a small bowel movement this morning, but continued to feel distended.? The patient denied fevers, chills, chest pain, or urinary symptoms. In the ED, patient had reduced urine output with retention after Gilman catheter placement, brown/tea-colored urine output of more than 2 L post-Gilman catheter placement, and he was very weak.? The patient had an elevated white blood cell count at 19.36, suggestive of infection or inflammation.? Elevated BUN and creatinine levels, indicating renal impairment, likely due to postobstructive uropathy. Electrolyte abnormalities: Sodium, chloride, carbon dioxide, and anion gap are within normal range, but BUN 120 and creatinine 13.8 significantly elevated - with no history of renal insufficiency. CT abdomen/pelvis as read by the radiologist - marked left hydronephrosis without hydroureter, thickening of the proximal left ureter, and inflammatory stranding, suggesting an obstructive process at the left UPJ or proximal left ureter.? Stranding around the left kidney, possibly indicating pyelonephritis. Moderate to severe left-sided hydronephrosis with no evidence of obstructive urolithiasis. Marked enlargement of the prostate gland. Linear infiltrate seen in lung bases, which may represent atelectasis, pneumonia, or scarring. Patient is admitted for observation and hydration to determine if renal function improves with conservative therapy. Patient was started on lactated ringers at 150 ml/h.? Consideration of repeat imaging with IV contrast and delayed/excretory phase imaging if the patient can tolerate it, to further assess the obstructive pathology and its etiology. Continuous monitoring of clinical status and renal function.? Discussion with Dr Flaherty; he will see the patient in consult later today.? Dr Flaherty is in agreement with current plan of care.? Patient is a full code. Review of Systems All systems reviewed & are unremarkable except as noted in HPI and below PFSH All Active Problems (Updated 07/30/23 @ 07:39 by Tristen Abrams MD) Acute bilateral obstructive uropathy (Acute) Acute renal failure (Acute) Uremic acidosis (Acute) Umbilical hernia (Acute) Cholelithiasis (Acute) Sigmoid diverticulum (Acute) Prostatitis (Acute) Medical History (Updated 07/30/23 @ 07:39 by Tristen Abrams MD) Right upper quadrant pain Hematuria Dental caries Social History Smoking/Tobacco Use Status: Never Smoking risk assessment performed?: Yes Alcohol Intake: former Drug use: Never Substance use type: does not use Housing: house Do you feel safe at home: Yes Do you feel safe in your relationship?: Yes Meds Allergies and Home Medications Allergies Allergy/AdvReac Type Severity Reaction Status Date / Time No Known Allergies Allergy Unverified 07/30/23 02:32 Home Medications Medication Instructions Recorded Confirmed Type Unknown [No Known Home Meds] 12/02/20 07/30/23 History Exam Const General: cooperative and ill appearing Eyes General: appearance normal, both eyes and all related structures Conjunctivae: conjunctivae normal Sclera: sclerae normal Pupils: PERRL Neck Neck: full ROM, no lymphadenopathy and JVD Resp Auscultation: clear to auscultation bilaterally Cardio Rate: tachycardic Rhythm: regular rhythm Heart Sounds: S1 normal and S2 normal GI Palpation: nontender Skin General skin exam: no rashes or lesions noted and turgor normal Lesions: no lesions Rashes: no rashes Trauma: no lacerations or abrasions Neuro General: patient alert, patient awake, patient oriented x3 and CN's II-XI intact bilaterally Cranial Nerves: CN's II-XI intact bilaterally Speech: speech normal Motor: no movement abnormalities noted and strength abnormal Sensory Exam: no sensory deficits noted Extrem General: normal to inspection, full ROM and no clubbing, cyanosis or edema Results Labs 07/30/23 12:25 07/30/23 12:25 Labs: Laboratory Results - last 24 hr 07/30/23 07/30/23 07/30/23 02:42 02:58 03:14 WBC 19.36 H RBC 4.93 Hgb 15.1 Hct 43.8 MCV 89 MCH 30.6 MCHC 34.5 RDW 13.3 Plt Count 209 MPV 9.8 Immature Gran % 1.7 Neutrophils % 83.1 Lymphocytes % 4.2 Monocytes % 10.5 Eosinophils % 0.1 Basophils % 0.4 Nucleated RBC % 0.0 Absolute Neutrophils 16.09 H Absolute Lymphocytes 0.81 L Absolute Monocytes 2.03 H Absolute Eosinophils 0.02 Absolute Basophils 0.08 RBC Morphology Normal VBG pH 7.31 VBG pCO2 32 L VBG pO2 42 VBG HCO3 16 L VBG Total CO2 15 L VBG O2 Saturation 72 VBG Base Excess -10 L VBG Lactate 1.8 H Sodium 133 L Potassium 4.7 Chloride 94 L Carbon Dioxide 18.0 L Anion Gap 21.0 H BUN 120 H* Creatinine 13.8 H* Est GFR (CKD-EPI 2020) 3.45 Glucose 124 H Calcium 9.0 Magnesium 2.8 H Total Bilirubin 0.9 AST 9 L ALT 22 Alkaline Phosphatase 121 H Troponin I < 50 NT-Pro-B Natriuret Pep 473 H Total Protein 7.8 Albumin 3.2 L Lipase 36 Urine Color Yellow Urine Clarity Sl Cloudy Urine pH 6.0 Ur Specific [place]anson >= 1.030 H Urine Protein Negative Urine Ketones Negative Urine Blood Trace-intact H Urine Nitrite Negative Urine Bilirubin Negative Urine Urobilinogen 0.2 Ur Leukocyte Esterase Negative Urine RBC 0-2 Urine WBC Negative Ur Epithelial Cells Negative Urine Crystals Negative Urine Bacteria Rare Urine Casts Negative Urine Mucus Negative Ur Culture Indicated? No Urine Glucose Negative COVID-19 Source Nasopharynx SARS-CoV-2 (PCR) Negative Influenza Type A (PCR) Negative Influenza Type B (PCR) Negative RSV (PCR) Negative 07/30/23 06:30 WBC RBC Hgb Hct MCV MCH MCHC RDW Plt Count MPV Immature Gran % Neutrophils % Lymphocytes % Monocytes % Eosinophils % Basophils % Nucleated RBC % Absolute Neutrophils Absolute Lymphocytes Absolute Monocytes Absolute Eosinophils Absolute Basophils RBC Morphology VBG pH 7.34 VBG pCO2 37 L VBG pO2 42 VBG HCO3 20 L VBG Total CO2 18 L VBG O2 Saturation 73 VBG Base Excess -6 L VBG Lactate Sodium 135 L Potassium 4.4 Chloride 97 L Carbon Dioxide 19.8 L Anion Gap 18.2 H BUN 110 H* Creatinine 10.2 H* Est GFR (CKD-EPI 2020) 4.96 Glucose 108 H Calcium 8.8 Magnesium Total Bilirubin AST ALT Alkaline Phosphatase Troponin I < 50 NT-Pro-B Natriuret Pep Total Protein Albumin Lipase Urine Color Urine Clarity Urine pH Ur Specific Branson Urine Protein Urine Ketones Urine Blood Urine Nitrite Urine Bilirubin Urine Urobilinogen Ur Leukocyte Esterase Urine RBC Urine WBC Ur Epithelial Cells Urine Crystals Urine Bacteria Urine Casts Urine Mucus Ur Culture Indicated? Urine Glucose COVID-19 Source SARS-CoV-2 (PCR) Influenza Type A (PCR) Influenza Type B (PCR) RSV (PCR) Last Vital Signs Temp 36.5 C 07/30/23 08:49 Pulse 97 H 07/30/23 08:49 Resp 18 07/30/23 08:49 BP 145/75 H 07/30/23 08:49 Pulse Ox 97 07/30/23 08:49 Time Spent Time spent with Patient: 55-74 minutes Time was spent: preparing to see the patient(eg.review tests), ordering medications,tests, procedures, referring, communicating with other health child care education coordinator, indepentently interpreting results, counseling the patient and care coordination
[2023-07-30] MEDS: Normal Saline 500 ML 100 ML IV (10:53)
[2023-07-30] MEDS: cefTRIAXone 2 GM/50 ML BAG IVPB (10:53)
[2023-07-30] MEDS: Normal Saline Flush 10 ML SYR IVP (10:54)
[2023-07-30] MEDS: Tamsulosin 0.4 MG CAPCR PO (10:54)
[2023-07-30] MEDS: Heparin 5,000 UNITS/ML VIAL 5000 UNITS SC ×3 (10:54→22:55)
[2023-07-30 12:31] LABS: Abs Immature Grans 0.17 10^3/uL (0.0-0.06); Absolute Basophil Count 0.04 10^3/uL (0.0-0.2); Absolute Eosinophil Count 0.04 10^3/uL (0.0-0.7); Absolute Lymphocyte Count 0.62 10^3/uL (1.2-3.4); Basophils % 0.3; Eosinophils % 0.3; HCT 41.2 % (40.0-50.0); Immature Grans % 1.2; Lymphocytes % 4.3; MCV 88 fL (80-95); MPV 9.7 fL (8.0-11.0); Monocytes % 10.9; Platelet Count 131 10^3/uL (130-400); RBC 4.66 10^6/uL (4.36-5.78); RDW 13.2 % (11.8-14.1); RDW-SD 43.1 fL; WBC 14.34 10^3/uL (4.4-10.8)
[2023-07-30 12:32] LABS: Absolute Monocyte Count 1.56 10^3/uL (0.1-0.8)
[2023-07-30 12:40] LABS: Diff Comment Diff Reviewed; RBC Morphology Normal
--- NOTE | 2023-07-30 12:41 | W.UROLOGYCON ---
Date of service: 07/30/23 Time of Service: 13:58 Assessment and Plan Assessment and plan (1) Acute bilateral obstructive uropathy: Status: Acute Assessment and plan: We recommend catheter drainage until his renal function stabilizes. If his renal function does not improve with catheter drainage alone as we would expect, we can always consider placing a left ureteral stent. Once his renal function has stabilized, we can consider our treatment options. Generally, when the patient reaches this degree of obstructive uropathy, we need to consider surgical treatment for bladder outlet obstruction, but it would be premature to make a final decision at this time. Because of the surgical technique varies for prostate cancer versus BPH, I will ask for a nonemergent PSA level to be drawn. We will use the PSA level as part of our decision making. History of Present Illness History of Present Illness Chief Complaint: Obstructive uropathy Narrative: This is a 72-year-old gentleman who was vacationing with his family for the past week. About 5 days ago he began nausea which progressed to vomiting and inability to void and abdominal pain. When they returned home last night, he presented to the emergency department. He was found to have have nearly 2 L of urine in his bladder and his serum creatinine was 13. A Gilman catheter was placed and his renal function has been monitored. Since his catheter was placed, he has been feeling much better. He had been seen by the urology service at [facility] in 2012. At that time he had gross hematuria. He was evaluated with a CT scan that showed a small nonobstructing stone in the left kidney with no other abnormalities. He had a cystoscopy in the office which demonstrated a significantly enlarged prostate with an enlarged median lobe extending back into the bladder. No bladder tumors were identified. He has no prior episodes of urinary retention or urinary tract infection. Other than the cystoscopy, he has not had any type of urologic surgery. He has no known family history of prostate cancer. His last PSA on record is from 2014 Review of Systems Narrative: No fevers or chills No vision change or dysphasia No diabetes or thyroid dysfunction No shortness of breath, cough or hemoptysis No chest pain or palpitations Nausea and vomiting on admission. No hepatitis, ulcers, jaundice No seizures, strokes or peripheral neuropathy No bleeding disorders or anemia No gout PFSH All Active Problems (Updated 07/30/23 @ 07:39 by Tristen Abarms MD) Acute bilateral obstructive uropathy (Acute) Acute renal failure (Acute) Uremic acidosis (Acute) Umbilical hernia (Acute) Cholelithiasis (Acute) Sigmoid diverticulum (Acute) Prostatitis (Acute) Medical History (Updated 07/30/23 @ 07:39 by Tristen Abrams MD) Right upper quadrant pain Hematuria Dental caries Social History Smoking/Tobacco Use Status: Never Smoking risk assessment performed?: Yes Alcohol Intake: former Drug use: Never Substance use type: does not use Housing: house Do you feel safe at home: Yes Do you feel safe in your relationship?: Yes Exam Narrative Exam Narrative: He is a pleasant gentleman in no current distress. His and his daughter are in the room with him today His vital signs are documented elsewhere His chest wall motion is normal. He is not short of breath at rest. His abdomen is soft. His bladder is not distended Gilman catheter is in place and is draining clear urine He is awake and alert I reviewed his CT scan on the PACS system. The Gilman had already been placed at the time of the scan, so his bladder was not distended. His prostate appears enlarged and there is left hydronephrosis with inflammatory changes along the course of the ureter His serum creatinine on admission to the emergency department was over 13. With bladder decompression, the creatinine came down to 10 within a few hours. The creatinine is now down to 7 Results Last Vital Signs Temp 36.5 C 07/30/23 08:49 Pulse 97 H 07/30/23 08:49 Resp 18 07/30/23 08:49 BP 145/75 H 07/30/23 08:49 Pulse Ox 97 07/30/23 08:49 Labs 07/30/23 12:25 07/30/23 12:25 Labs: Laboratory Results - last 24 hr 07/30/23 07/30/23 07/30/23 02:42 02:58 03:14 WBC 19.36 H RBC 4.93 Hgb 15.1 Hct 43.8 MCV 89 MCH 30.6 MCHC 34.5 RDW 13.3 Plt Count 209 MPV 9.8 Immature Gran % 1.7 Neutrophils % 83.1 Lymphocytes % 4.2 Monocytes % 10.5 Eosinophils % 0.1 Basophils % 0.4 Nucleated RBC % 0.0 Absolute Neutrophils 16.09 H Absolute Lymphocytes 0.81 L Absolute Monocytes 2.03 H Absolute Eosinophils 0.02 Absolute Basophils 0.08 RBC Morphology Normal VBG pH 7.31 VBG pCO2 32 L VBG pO2 42 VBG HCO3 16 L VBG Total CO2 15 L VBG O2 Saturation 72 VBG Base Excess -10 L VBG Lactate 1.8 H Sodium 133 L Potassium 4.7 Chloride 94 L Carbon Dioxide 18.0 L Anion Gap 21.0 H BUN 120 H* Creatinine 13.8 H* Est GFR (CKD-EPI 2020) 3.45 Glucose 124 H Calcium 9.0 Magnesium 2.8 H Total Bilirubin 0.9 AST 9 L ALT 22 Alkaline Phosphatase 121 H Troponin I < 50 NT-Pro-B Natriuret Pep 473 H Total Protein 7.8 Albumin 3.2 L Lipase 36 Urine Color Yellow Urine Clarity Sl Cloudy Urine pH 6.0 Ur Specific Roosevelt >= 1.030 H Urine Protein Negative Urine Ketones Negative Urine Blood Trace-intact H Urine Nitrite Negative Urine Bilirubin Negative Urine Urobilinogen 0.2 Ur Leukocyte Esterase Negative Urine RBC 0-2 Urine WBC Negative Ur Epithelial Cells Negative Urine Crystals Negative Urine Bacteria Rare Urine Casts Negative Urine Mucus Negative Ur Culture Indicated? No Urine Glucose Negative COVID-19 Source Nasopharynx SARS-CoV-2 (PCR) Negative Influenza Type A (PCR) Negative Influenza Type B (PCR) Negative RSV (PCR) Negative 07/30/23 07/30/23 06:30 12:25 WBC 14.34 H RBC 4.66 Hgb 14.0 Hct 41.2 MCV 88 MCH 30.0 MCHC 34.0 RDW 13.2 Plt Count 131 MPV 9.7 Immature Gran % 1.2 Neutrophils % 83.0 Lymphocytes % 4.3 Monocytes % 10.9 Eosinophils % 0.3 Basophils % 0.3 Nucleated RBC % 0.0 Absolute Neutrophils 11.90 H Absolute Lymphocytes 0.62 L Absolute Monocytes 1.56 H Absolute Eosinophils 0.04 Absolute Basophils 0.04 RBC Morphology Normal VBG pH 7.34 VBG pCO2 37 L VBG pO2 42 VBG HCO3 20 L VBG Total CO2 18 L VBG O2 Saturation 73 VBG Base Excess -6 L VBG Lactate Sodium 135 L Potassium 4.4 Chloride 97 L Carbon Dioxide 19.8 L Anion Gap 18.2 H BUN 110 H* Creatinine 10.2 H* Est GFR (CKD-EPI 2020) 4.96 Glucose 108 H Calcium 8.8 Magnesium Total Bilirubin AST ALT Alkaline Phosphatase Troponin I < 50 NT-Pro-B Natriuret Pep Total Protein Albumin Lipase Urine Color Urine Clarity Urine pH Ur Specific Roosevelt Urine Protein Urine Ketones Urine Blood Urine Nitrite Urine Bilirubin Urine Urobilinogen Ur Leukocyte Esterase Urine RBC Urine WBC Ur Epithelial Cells Urine Crystals Urine Bacteria Urine Casts Urine Mucus Ur Culture Indicated? Urine Glucose COVID-19 Source SARS-CoV-2 (PCR) Influenza Type A (PCR) Influenza Type B (PCR) RSV (PCR)
[2023-07-30 12:45] LABS: Anion Gap 14.4 mmol/L (3-11); CO2 22.6 mmol/L (21.0-32.0); Calcium 8.9 mg/dL (8.5-10.1); Chloride 100 mmol/L (98-107); Estimated GFR 7.06 (mL/min/1.73m2); Glucose 121 mg/dL (74-106); Potassium 4.1 mmol/L (3.5-5.1); Sodium 137 mmol/L (136-145)
[2023-07-30 12:46] LABS: BUN 100 mg/dL (7-18); CREATININE 7.6 mg/dL (0.70-1.30)
--- NOTE | 2023-07-30 16:51 | PHA.REVIEW2 ---
Pharmacy Admission Review Admission Clinical Review Admission Pharmacy Review: Acute bilateral obstructive uropathy (Acute) Acute renal failure (Acute) Uremic acidosis (Acute) No Known Allergies Allergy (Unverified 07/30/23 02:32) Resuscitation Status Full Code Height 5 ft 4 in Weight 84.1 kg Comments Comments/Follow Ups: (ROBERTO) repeat Creatinine with fluid resuscitation, very little oral intake in over a week Urology is following, ?Obstruction, possible surgical intervention requiring stenting CT chest: possible infiltrates caused by Pneumonia or atelectasis or scarring Repeat labs @ 1800 today Pharmacy Admission Review Renal Dosing Renal Dosing: BUN 100 mg/dL (7-18) H* 07/30/23 12:25 Creatinine 7.6 mg/dL (0.70-1.30) H* 07/30/23 12:25 CrCl~8.7mlmin (improved since admission) SCr was 13.8 on admission Anticoagulation Anticoagulation: Hgb 14.0 g/dL (13.5-17.5) 07/30/23 12:25 Hct 41.2 % (40.0-50.0) 07/30/23 12:25 Plt Count 131 10^3/uL (130-400) 07/30/23 12:25 Creatinine 7.6 mg/dL (0.70-1.30) H* 07/30/23 12:25 DVT Prophylaxis: Reviewed Medications: Heparin Opiate Usage Evaluate Pain Scale/Pains Meds: N/A Relevant Labs Relevant Labs: Sodium 137 mmol/L (136-145) 07/30/23 12:25 Potassium 4.1 mmol/L (3.5-5.1) 07/30/23 12:25 Chloride 100 mmol/L (98-107) 07/30/23 12:25 Magnesium 2.8 mg/dL (1.8-2.4) H 07/30/23 02:42 Electrolytes, C-Reactive P, ESR: Reviewed (Lactate 1.8) Cardiac Review Cardiac Review: Troponin I < 50 ng/L (< or =60) 07/30/23 06:30 NT-Pro-B Natriuret Pep 473 pg/mL (<300) H 07/30/23 02:42 QTc Review QTc: N/A (EKG not reported yet) Home Meds Home Med List reviewed: Reviewed (no home meds listed) Current Meds Current Medication Order Review: Reviewed (Lactated Ringers @ 150ml/hr) Pharmacy Antibiotic Review Relevant Labs: Blood cultures pending, WBC 14.34 Pharmacy Antibiotic Activity: Reviewed, no change (Ceftriaxone 2gram daily) Comments Comments/Follow Ups: (ROBERTO) repeat Creatinine with fluid resuscitation, very little oral intake in over a week Urology is following, ?Obstruction, possible surgical intervention requiring stenting CT chest: possible infiltrates caused by Pneumonia or atelectasis or scarring Repeat labs @ 1800 today
[2023-07-30 19:13] LABS: Anion Gap 14.3 mmol/L (3-11); CO2 22.7 mmol/L (21.0-32.0); Calcium 8.9 mg/dL (8.5-10.1); Chloride 103 mmol/L (98-107); Estimated GFR 11.66 (mL/min/1.73m2); Glucose 132 mg/dL (74-106); Potassium 3.7 mmol/L (3.5-5.1); Sodium 140 mmol/L (136-145)
[2023-07-30 19:23] LABS: BUN 81 mg/dL (7-18)
[2023-07-30] MEDS: Lactated Ringers 1,000 ML 200 ML IV (20:14)
[2023-07-31 00:29] LABS: Anion Gap 6.8 mmol/L (3-11); BUN 57 mg/dL (7-18); CO2 23.2 mmol/L (21.0-32.0); Calcium 8.3 mg/dL (8.5-10.1); Chloride 106 mmol/L (98-107); Glucose 117 mg/dL (74-106); Potassium 3.6 mmol/L (3.5-5.1); Sodium 136 mmol/L (136-145)
[2023-07-31 00:35] LABS: CREATININE 2.5 mg/dL (0.70-1.30)
[2023-07-31] MEDS: Lactated Ringers 1,000 ML 200 ML IV ×3 (01:19→10:09)
[2023-07-31 02:54] VITALS: BP 138/77; PULSE 88; RESP 16; TEMP 36; O2SAT 94
[2023-07-31 06:40] LABS: Abs Immature Grans 0.16 10^3/uL (0.0-0.06); Absolute Basophil Count 0.03 10^3/uL (0.0-0.2); Absolute Eosinophil Count 0.12 10^3/uL (0.0-0.7); Absolute Lymphocyte Count 0.69 10^3/uL (1.2-3.4); Absolute Monocyte Count 1.07 10^3/uL (0.1-0.8); Absolute Neutrophil Count 8.46 10^3/uL (1.2-6.7); Basophils % 0.3; Eosinophils % 1.1; HCT 37.2 % (40.0-50.0); HGB 12.8 g/dL (13.5-17.5); Immature Grans % 1.5; Lymphocytes % 6.6; MCH 30.3 pg (27.0-33.0); MCHC 34.4 % (32.0-36.0); MCV 88 fL (80-95); MPV 9.5 fL (8.0-11.0); Monocytes % 10.2; Neutrophils % 80.3; Platelet Count 132 10^3/uL (130-400); RBC 4.22 10^6/uL (4.36-5.78); RDW 13.2 % (11.8-14.1); RDW-SD 43.1 fL; WBC 10.53 10^3/uL (4.4-10.8)
[2023-07-31 07:12] LABS: ALT 24 U/L (16-63); AST 14 U/L (15-37); Albumin 2.2 g/dL (3.4-5.0); Alkaline Phosphatase 104 U/L (46-116); Anion Gap 9.9 mmol/L (3-11); BUN 46 mg/dL (7-18); Bilirubin, Total 0.7 mg/dL (0.2-1.0); CO2 23.1 mmol/L (21.0-32.0); CREATININE 1.8 mg/dL (0.70-1.30); Calcium 8.4 mg/dL (8.5-10.1); Chloride 108 mmol/L (98-107); Estimated GFR 39.75 (mL/min/1.73m2); Glucose 103 mg/dL (74-106); Potassium 3.7 mmol/L (3.5-5.1); Sodium 141 mmol/L (136-145); Total Protein 5.9 g/dL (6.4-8.2)
--- NOTE | 2023-07-31 07:26 | NUR.NOTE ---
Accessed chart to reconcile orders for EKG with EKG?s in [facility]. Nursing Note:
[2023-07-31 07:43] VITALS: BP 150/75; PULSE 93; RESP 18; TEMP 36.4; O2SAT 95
--- NOTE | 2023-07-31 08:26 | INITIAL_ITS ---
Date of service: 07/31/23 Care Management Initial Assmt Initial Assessment REASON FOR HOSPITALIZATION:: Post obstructive ROBERTO PREVIOUS FUNCTIONAL STATUS/SOCIAL/FAMILY SUPPORTS:: Kei lives in [facility] with Katina. ADVANCE DIRECTIVES:: None on file Has patient been provided with info about the portal/API?: Yes Did the patient sign up for the portal?: No CODE STATUS:: Full Code INSURANCE COVERAGE / FINANCIAL ISSUES:: Medicare Part A & B [employer] Senior Supplemental Ins PRIMARY CARE PHYSICIAN:: DEV Pena POTENTIAL DISCHARGE NEEDS:: Follow up in the community with providers PATIENT/FAMILY EDUCATION NEEDS:: Review discharge instructions, discussion of Ask Me Three ANTICIPATED BARRIERS TO DISCHARGE:: None identified TRANSPORTATION:: Via private vehicle with family. PLAN:: Kei will return home when medically cleared. He will transport via private vehicle by family. He will follow up with his PCP and plan of care instructions. CM following. PFSH All Active Problems (Updated 07/30/23 @ 07:39 by Tristen Abrams MD) Acute bilateral obstructive uropathy (Acute) Acute renal failure (Acute) Uremic acidosis (Acute) Umbilical hernia (Acute) Cholelithiasis (Acute) Sigmoid diverticulum (Acute) Prostatitis (Acute) Medical History (Updated 07/30/23 @ 07:39 by Tristen Abrams MD) Right upper quadrant pain Hematuria Dental caries Social History Smoking/Tobacco Use Status: Never Smoking risk assessment performed?: Yes Alcohol Intake: former Drug use: Never Substance use type: does not use Housing: house Do you feel safe at home: Yes Do you feel safe in your relationship?: Yes SDOH(Care Management) Screening Will the Patient Participate in the Screening?: Yes Do you worry about having a steady place to live?: yes In the past 12 months, have you had to go without electric, gas, oil or water in your home?: no Have you or anyone in your house had to go without enough food to eat?: no Has lack of transportation kept you from medical appointments or from doing things needed for daily living?: no Has anyone in your support network made you feel unsafe for any reason?: no Health Related Social Needs Health related social needs: housing instability, housed, with risk of homelessness(Z59.811)
[2023-07-31] MEDS: Tamsulosin 0.4 MG CAPCR PO (09:00)
[2023-07-31] MEDS: Heparin 5,000 UNITS/ML VIAL 5000 UNITS SC (09:00)
[2023-07-31] MEDS: cefTRIAXone 2 GM/50 ML BAG IVPB (10:09)
[2023-07-31] MEDS: Normal Saline Flush 10 ML SYR IVP (10:09)
[2023-07-31 11:02] VITALS: BP 146/81; PULSE 91; RESP 18; TEMP 36.5; O2SAT 92
--- NOTE | 2023-07-31 13:39 | DSE_ITS ---
Date of service: 07/31/23 Time of Service: 13:39 DS: Diagnosis Discharge Diagnosis (1) Acute bilateral obstructive uropathy: Status: Acute Discharge Plan Disposition Patient Disposition: Home Condition: Improving Discharge Details Reason For Visit: Post obstructive ROBERTO Admit Date/Time: 07/30/23 07:35 Admit Provider: Danny Hull Attending Provider: Danny Hlul Primary Care Provider: Danny Hale Hospital Course Hospital Course: This is a 72-year-old male patient with past medical history: * Cholelithiasis * Sigmoid diverticulum * Prostatitis * Umbilical hernia The patient presented to the [facility] ED 07/31/23 reporting difficulty eating or drinking for nearly a week while in the [place]. He experienced weakness, shortness of breath, abdominal pain, and nausea starting on 07/25/23 . Initial vomiting occurred, but no further vomiting or diarrhea throughout the week. Decreased urine output was noted, with less than 100 ml on presentation. Patient was found to have: * Reduced urine output with retention post-Gilman catheter placement * Brown/tea-colored urine output (>2 L post-Gilman catheter) * Weakness Labs: * Elevated white blood cell count (19.36) * Elevated BUN (120) and creatinine (13.8) * CT abdomen/pelvis findings suggestive of left hydronephrosis, proximal left ureter thickening, and inflammatory stranding, possibly indicating pyelonephritis * Marked prostate gland enlargement * Linear infiltrate in lung bases Patienst was placed on observation status: * Started on lactated Ringer's at 150 ml/h * Creatinine decreased to 1.8; BUN to 46 * Improved symptoms with conservative therapy * Discharge planned with Gilman catheter in place * Medications: Tamsulosin 0.4 mg daily, cefpodoxime 200 mg twice a day for 5 days (Prescriptions sent) * Follow-up arranged with Dr. Flaherty's office * Pending PSA test * Blood cultures negative @ 24 hours. Disposition: * Discharged home with Gilman catheter in place; nursing to teach family how to care for it. (Please send a leg bag). * Full code status Plan: * Follow up with Dr. Flaherty's office * Continue medications as prescribed * Have labs checked on Wednesday - an order has been sent. Patient agrees with the plan and understands the discharge instructions. Discussed with Dr Hull and Dr Flaherty Home Meds and New Rx's Prescriptions: New cefpodoxime 200 mg tablet 200 mg PO BID Qty: 10 0RF Rx Instructions: must administer with a meal/food tamsulosin 0.4 mg capsule 0.4 mg PO DAILY Qty: 30 0RF Discharge Instructions Instructions: Cefpodoxime Proxetil (By mouth), Tamsulosin (By mouth), Enlarged Prostate (BPH) (DC) Additional Instructions: Drink plenty of fluid. Referrals: Rayshawn Flaherty MD [ [facility] STAFF PHYSICIAN] - (Follow up this week - post in patient visit) Danny Hale PA [Primary Care Provider] - (1-2 weeks) Activity:: Activity as Tolerated Equipment/Supplies:: No Equipment Needed Diet:: As Tolerated Discharge Orders Discharge Orders: Discharge Order (Routine); Ordered 07/31/23 Ordered By: Arely Johnson Other Ambulatory Orders: Basic Metabolic Panel (Routine) Timeframe: 3 Days Facility: [facility] - Location: Laboratory Outpatient - [facility] Ordered By: Arely Johnson DS: Summary Time Spent with Patient providing and/or coordinating discharge services: Greater than 30 minutes Status at Discharge Functional status at discharge: independent ambulation Overall status at discharge: patient is progressing back to baseline Mental Status: mental status grossly normal Speech and Movement: speech and movement normal Mood: congruent mood Affect: normal affect Quality:SDOH Health Related Social Needs: Health related social needs risk of homeless Exam Const General: cooperative and ill appearing Eyes General: appearance normal, both eyes and all related structures Conjunctivae: conjunctivae normal Sclera: sclerae normal Pupils: PERRL Neck Neck: full ROM, no lymphadenopathy and JVD Resp Auscultation: clear to auscultation bilaterally Cardio Rate: tachycardic Rhythm: regular rhythm Heart Sounds: S1 normal and S2 normal GI Palpation: nontender Skin General skin exam: no rashes or lesions noted and turgor normal Lesions: no lesions Rashes: no rashes Trauma: no lacerations or abrasions Neuro General: patient alert, patient awake, patient oriented x3 and CN's II-XI intact bilaterally Cranial Nerves: CN's II-XI intact bilaterally Speech: speech normal Motor: no movement abnormalities noted and strength abnormal Sensory Exam: no sensory deficits noted Extrem General: normal to inspection, full ROM and no clubbing, cyanosis or edema Psych Mental Status: mental status grossly normal Speech and Movement: speech and movement normal Mood: congruent mood Affect: normal affect DS: Data Vitals/I&O Vitals and I&O: Vital Signs Temperature 36.5 C 07/31/23 11:02 Temperature Source Tympanic 07/31/23 11:02 Pulse 91 H 07/31/23 11:02 Pulse Rhythm Regular 07/31/23 09:10 Pulse 97 H 07/30/23 07:30 Respiratory Rate 18 07/31/23 11:02 Respiratory Effort Normal, Non-Labored 07/31/23 09:10 Respiratory Depth Normal 07/31/23 09:10 Respiratory Pattern Normal 07/31/23 09:10 Blood Pressure 146/81 H 07/31/23 11:02 Blood Pressure Mean 94 07/30/23 07:16 Blood Pressure Position Sitting 07/30/23 08:23 Pulse Oximetry 92 07/31/23 11:02 Oxygen Delivery Method Room Air 07/31/23 11:02 Oxygen Flow Rate 0 07/31/23 11:02 Pain Level 0 07/31/23 07:43 Comment BP called over radio 07/31/23 11:02 Intake & Output 07/30/23 07/31/23 07/31/23 23:59 11:59 23:59 Intake Total 2682 / 2732 3950 / 3950 Output Total 1050 / 4740 1050 / 1400 350 / 1400 Balance 1631 2900 / 2550 -350 / 2550 Weight 78.7 kg Intake: IV 2082 / 2132 3950 / 3950 Oral 600 / 600 Output: Urine 1050 / 4740 1050 / 1400 350 / 1400 Other: Urine Color Yellow Yellow Yellow Urine Appearance Cloudy Clear Clear Urine Odor None Stool Size Moderate Stool Characteristics Liquid Brown Voiding Methods Indwelling Catheter Data Completed and Pending Labs on day of discharge: Labs from last 24 hours 07/31/23 07/31/23 07/30/23 06:22 00:12 18:48 WBC 10.53 RBC 4.22 L Hgb 12.8 L Hct 37.2 L MCV 88 MCH 30.3 MCHC 34.4 RDW 13.2 Plt Count 132 MPV 9.5 Immature Gran % 1.5 Neutrophils % 80.3 Lymphocytes % 6.6 Monocytes % 10.2 Eosinophils % 1.1 Basophils % 0.3 Nucleated RBC % 0.0 Absolute Neutrophils 8.46 H Absolute Lymphocytes 0.69 L Absolute Monocytes 1.07 H Absolute Eosinophils 0.12 Absolute Basophils 0.03 Sodium 141 136 Potassium 3.7 3.6 Chloride 108 H 106 Carbon Dioxide 23.1 23.2 Anion Gap 9.9 6.8 BUN 46 H 57 H Creatinine 1.8 H 2.5 H D Est GFR (CKD-EPI 2020) 39.75 26.80 Cancelled Glucose 103 117 H 132 H Calcium 8.4 L 8.3 L 8.9 Total Bilirubin 0.7 AST 14 L ALT 24 Alkaline Phosphatase 104 Total Protein 5.9 L Albumin 2.2 L Prostate Specific Ag Pending 07/30/23 07/30/23 07/30/23 18:48 18:48 18:48 WBC RBC Hgb Hct MCV MCH MCHC RDW Plt Count MPV Immature Gran % Neutrophils % Lymphocytes % Monocytes % Eosinophils % Basophils % Nucleated RBC % Absolute Neutrophils Absolute Lymphocytes Absolute Monocytes Absolute Eosinophils Absolute Basophils Sodium 140 Potassium 3.7 Chloride 103 Carbon Dioxide 22.7 Anion Gap 14.3 H BUN Cancelled 81 H* Creatinine Cancelled 5.0 H* D Est GFR (CKD-EPI 2020) 11.66 Glucose Calcium Total Bilirubin AST ALT Alkaline Phosphatase Total Protein Albumin Prostate Specific Ag 07/30/23 23:00 Urine - Cath Gilman Indwelling Urine Culture - Pending Preliminary micro results at discharge 07/30/23 09:06 Blood Culture - Preliminary Blood NO GROWTH 24 HOURS 07/30/23 09:06 Blood Culture - Preliminary Blood NO GROWTH 24 HOURS 07/30/23 23:00 Urine Culture - Pending Urine - Cath Gilman Indwelling [facility] All Active Problems (Updated 07/30/23 @ 07:39 by Tristen Abrams MD) Acute bilateral obstructive uropathy (Acute) Acute renal failure (Acute) Uremic acidosis (Acute) Umbilical hernia (Acute) Cholelithiasis (Acute) Sigmoid diverticulum (Acute) Prostatitis (Acute) Medical History (Updated 07/30/23 @ 07:39 by Tristen Abrams MD) Right upper quadrant pain Hematuria Dental caries Social History Smoking/Tobacco Use Status: Never Smoking risk assessment performed?: Yes Alcohol Intake: former Drug use: Never Substance use type: does not use Housing: house Do you feel safe at home: Yes Do you feel safe in your relationship?: Yes Time Spent with Patient Time Spent with Patient: 45-69 minutes Time was spent: preparing to see the patient(eg.review tests), ordering medications,tests, procedures, referring, communicating with other health care management specialist, indepentently interpreting results, counseling the patient and care coordination
--- NOTE | 2023-07-31 14:07 | PDOC.CMDIS ---
Date of service: 07/31/23 LACE Index Scoring Tool Questions: Length of Stay (in days): 1 Was the patient admitted via the E.D.?: Yes E.D. Visits: 0 Answers: Total Score: 4 Risk of Readmission: Low Risk Care Management Discharge Plan Reason for Hospitalization: Abnormal malignancy with obstructive jaundice Discharge Plan: Kei will discharge home when medically cleared. He will transport home via private vehicle. He will follow up with community providers and discharge plan of care as prescribed. He will follow up with for garcia catheter follow up. Patient/Family Education Needs: Review discharge instructions and limitations, discussion of self care needs including Ask Me Three [facility] Health Related Social Needs: No Data to Display
[2023-08-02 08:51] LABS: PSA, Diagnostic 14.6 ng/mL (<=6.5)
== END 2023-07-31 15:00 | disposition home or self-care (01) | DRG 683 ==
LOC: ER 07:39 → MS 08:32
PROVIDERS: Urology; Admitting Provider Internal Medicine; Emergency Provider Emergency Medicine Emergency Medical Services; PCP Physician Assistant Medical; Visit Provider Internal Medicine
DX: N17.9 Acute kidney failure, unspecified (principal); N13.8 Other obstructive and reflux uropathy; N13.1 Hydronephrosis with ureteral stricture, not elsewhere classified; N40.1 Benign prostatic hyperplasia with lower urinary tract symptoms; R53.1 Weakness; D72.829 Elevated white blood cell count, unspecified
CPT/HCPCS: 00123; 36410; 36415; 36416; 51702; 51798; 80048; 80053; 82805; 82962; 83690; 84520; 87040; 87637; 93005; 96360; 99222; 99285; 71045; 74176; 81003; 81015; 82565; 83605; 83735; 83880; 84153; 84484; 85025; 87086; 93010; 99239; J0696; J1644

== ENCOUNTER → 2023-08-03 10:16 | Outpatient (BNVA) | payer MEDICARE, SELFPAY | PROVIDERS: PCP Physician Assistant Medical; Referring Provider Physician Assistant Medical; Visit Provider Urology ==

== ENCOUNTER 2023-08-03 11:48 | Outpatient (CLI) | payer MEDICARE, SELFPAY ==
[2023-08-03 11:51] LABS: Anion Gap 5.6 mmol/L (3-11); BUN 18 mg/dL (7-18); CO2 29.4 mmol/L (21.0-32.0); CREATININE 1.3 mg/dL (0.70-1.30); Calcium 8.6 mg/dL (8.5-10.1); Chloride 102 mmol/L (98-107); Estimated GFR 58.73 (mL/min/1.73m2); Glucose 102 mg/dL (74-106); Potassium 4.1 mmol/L (3.5-5.1); Sodium 137 mmol/L (136-145)
== END 2023-08-03 11:49 | disposition home or self-care (01) ==
PROVIDERS: PCP Physician Assistant Medical; Visit Provider Nurse Practitioner Family
DX: N13.8 Other obstructive and reflux uropathy; R97.20 Elevated prostate specific antigen [PSA]
CPT/HCPCS: 36415; 80048; 99213

== ENCOUNTER → 2023-08-16 07:53 | Outpatient (BNVA) | payer MEDICARE, SELFPAY | PROVIDERS: PCP Physician Assistant Medical; Referring Provider Physician Assistant Medical; Visit Provider Nurse Practitioner Gerontology | DX: Z46.6 Encounter for fitting and adjustment of urinary device (principal); R33.8 Other retention of urine | CPT/HCPCS: 99213 ==

== ENCOUNTER → 2023-08-24 13:19 | Outpatient (BNVA) | payer MEDICARE, SELFPAY | PROVIDERS: PCP Physician Assistant Medical; Referring Provider Physician Assistant Medical; Visit Provider Nurse Practitioner Gerontology | DX: R31.9 Hematuria, unspecified (principal); R33.9 Retention of urine, unspecified; R82.998 Other abnormal findings in urine | CPT/HCPCS: 81003; 99213 ==

== ENCOUNTER 2023-08-24 13:55 | Outpatient (REF) | payer MEDICARE, SELFPAY | END 2023-08-24 13:56 | disposition home or self-care (01) | LOC: LBN 13:55 | PROVIDERS: PCP Physician Assistant Medical; Visit Provider Nurse Practitioner Gerontology | DX: R31.9 Hematuria, unspecified (principal); B96.5 Pseudomonas (aeruginosa) (mallei) (pseudomallei) as the cause of diseases classified elsewhere; B96.89 Other specified bacterial agents as the cause of diseases classified elsewhere | CPT/HCPCS: 87077; 87086; 87186 ==

== ENCOUNTER → 2023-09-07 08:46 | Outpatient (BNVA) | payer MEDICARE, SELFPAY | PROVIDERS: PCP Physician Assistant Medical; Referring Provider Physician Assistant Medical; Visit Provider Urology | DX: N13.9 Obstructive and reflux uropathy, unspecified (principal); R97.20 Elevated prostate specific antigen [PSA]; Z46.6 Encounter for fitting and adjustment of urinary device | CPT/HCPCS: 51702 ==

== ENCOUNTER → 2023-10-04 13:43 | Outpatient (BNVA) | payer MEDICARE, SELFPAY | PROVIDERS: PCP Physician Assistant Medical; Referring Provider Physician Assistant Medical; Visit Provider Urology | DX: Z46.6 Encounter for fitting and adjustment of urinary device (principal); N13.9 Obstructive and reflux uropathy, unspecified | CPT/HCPCS: 51702 ==

== ENCOUNTER → 2023-10-27 13:45 | Outpatient (BNVA) | payer MEDICARE, SELFPAY | PROVIDERS: PCP Physician Assistant Medical; Referring Provider Physician Assistant Medical; Visit Provider Nurse Practitioner Gerontology | DX: N13.9 Obstructive and reflux uropathy, unspecified (principal) | CPT/HCPCS: 51702 ==

== ENCOUNTER → 2023-11-30 15:16 | Outpatient (BNVA) | payer MEDICARE, SELFPAY | PROVIDERS: PCP Physician Assistant Medical; Visit Provider Urology | DX: Z46.6 Encounter for fitting and adjustment of urinary device (principal); N13.8 Other obstructive and reflux uropathy | CPT/HCPCS: 51702 ==

== ENCOUNTER 2023-11-30 19:47 | Outpatient (REF) | payer MEDICARE, SELFPAY | END 2023-11-30 19:48 | disposition home or self-care (01) | LOC: LBN 19:47 | PROVIDERS: PCP Physician Assistant Medical; Visit Provider Urology | DX: R39.15 Urgency of urination (principal); R82.90 Unspecified abnormal findings in urine | CPT/HCPCS: 87077; 87086; 87186 ==

== ENCOUNTER → 2023-12-27 15:18 | Outpatient (BNVA) | payer MEDICARE, SELFPAY | PROVIDERS: PCP Physician Assistant Medical; Visit Provider Urology | DX: N13.8 Other obstructive and reflux uropathy (principal) | CPT/HCPCS: 51702 ==

== ENCOUNTER 2023-12-27 17:45 | Outpatient (REF) | payer MEDICARE, SELFPAY | END 2023-12-27 17:46 | disposition home or self-care (01) | LOC: LBN 17:45 | PROVIDERS: PCP Physician Assistant Medical; Visit Provider Urology | DX: N40.0 Benign prostatic hyperplasia without lower urinary tract symptoms (principal); N13.9 Obstructive and reflux uropathy, unspecified | CPT/HCPCS: 87077; 87086; 87186 ==

== ENCOUNTER 2024-04-18 09:13 | Outpatient (REF) | payer MEDICARE, SELFPAY ==
[2024-04-18 16:39] LABS: ALT 16 U/L (16-63); AST 13 U/L (15-37); Albumin 3.8 g/dL (3.4-5.0); Alkaline Phosphatase 98 U/L (46-116); Anion Gap 6.8 mmol/L (3-11); BUN 18 mg/dL (7-18); Bilirubin, Total 0.82 mg/dL (0.2-1.0); CO2 29.2 mmol/L (21.0-32.0); CREATININE 1.3 mg/dL (0.70-1.30); Calcium 9.3 mg/dL (8.5-10.1); Calculated LDL 115 mg/dL (<100); Chloride 107 mmol/L (98-107); Cholesterol 186 mg/dL (<200); Estimated GFR 58.37 (mL/min/1.73m2); Glucose 113 mg/dL (74-106); HDL Cholesterol 47 mg/dL (40-60); Potassium 4.7 mmol/L (3.5-5.1); Sodium 143 mmol/L (136-145); Total Protein 6.8 g/dL (6.4-8.2); Triglyceride 120 mg/dL (<150)
[2024-04-18 22:25] LABS: PSA, Screening 0.8 ng/mL (<=6.5)
== END 2024-04-18 09:14 | disposition home or self-care (01) ==
LOC: NCHCN 09:13
PROVIDERS: PCP Physician Assistant Medical; Visit Provider Physician Assistant Medical
DX: N40.1 Benign prostatic hyperplasia with lower urinary tract symptoms (principal)
CPT/HCPCS: 80053; 80061; 84153; 87086

== ENCOUNTER → 2024-12-25 13:10 | Outpatient (BNVA) | payer MEDICARE, SELFPAY | PROVIDERS: PCP Physician Assistant Medical; Referring Provider Physician Assistant Medical; Visit Provider Student in an Organized Health Care Education/Training Program | DX: R13.10 Dysphagia, unspecified (principal); R63.4 Abnormal weight loss; K44.9 Diaphragmatic hernia without obstruction or gangrene | CPT/HCPCS: 99214 ==

== ENCOUNTER 2025-01-22 08:37 | Day surgery (SDC) | payer MEDICARE, SELFPAY ==
--- NOTE | 2025-01-22 08:30 | W.ANESPRE ---
General Info Date of Service Date Performed: 01/22/25 Height: 5 ft 4 in Weight: 71.781 kg Body Mass Index (BMI): 27.1 Surgical Procedure: Operation Date: 01/22/25 09:35 Proposed Procedure Side Surgeon p Gastroscopy Joseph Herring MD Meds Allergies and Home Medications Allergies Allergy/AdvReac Type Severity Reaction Status Date / Time No Known Allergies Allergy Verified 01/22/25 08:44 Home Medication ?Medication ?Instructions ?Recorded omeprazole 20 mg capsule,delayed 20 mg PO DAILY 12/25/24 release Current Visit Medications: Current Medications Generic Name Dose Route Start Last Admin Trade Name Freq PRN Reason Stop Dose Admin Ringer's Solution 1,000 mls @ 80 mls/hr 01/22/25 06:00 IV 02/18/25 23:59 INFUSION JANA IV Miscellaneous Supplies 1 each 01/22/25 06:00 Iv Access IV 02/18/25 23:59 DIRECTED JANA Sodium Chloride 0 ml 01/22/25 06:00 Normal Saline Flush 10 Ml Syr IV 02/18/25 23:59 PRN PRN Sodium Chloride 0 ml 01/22/25 06:00 Normal Saline 10 Ml Vial IJ 02/18/25 23:59 DIRECTED PRN Sterile Water 0 ml 01/22/25 06:00 Water,Injection,Sterile 10 Ml Vial IJ 02/18/25 23:59 DIRECTED PRN PFSH Active Problems Active Problems: Problem Status Onset Code Dysphagia Acute R13.10 Weight loss Acute R63.4 Hiatal hernia Chronic K44.9 Dysphasia Acute R47.02 Hyperlipidemia Acute E78.5 Elevated PSA Acute R97.20 Acute bilateral obstructive uropathy Acute N13.9 Umbilical hernia Acute K42.9 Cholelithiasis Acute K80.20 Sigmoid diverticulum Acute K57.30 Prostatitis Acute N41.9 Medical History Medical History Right upper quadrant pain Hematuria Dental caries Tobacco Smoking/Tobacco Use Status: Never Alcohol Alcohol Intake: former Substance Use Substance use: Never Substance use type: does not use Vital Signs and Lab Results Vital Signs Comment Vital Signs Comment:: Temp Pulse Resp BP Pulse Ox 36.3 C L 83 14 135/79 100 01/22/25 08:47 01/22/25 08:47 01/22/25 08:47 01/22/25 08:47 01/22/25 08:47 Imaging and Studies Imaging and Studies Study information below may be from another EMR and interpreted by another provider. Please see original notes in EMR for more complete details. EKG Summary: PATIENT NAME: Kei Welch UNIT #: [id number] ORDERING PROVIDER: Tristen Abrams M.D. PRIMARY CARE PROVIDER: JAKY ELLIS DATE/TIME OF SERVICE: 07/30/23233 : 1950 PERFORMING LOCATION: [place] APPROVED REPORT Exam: Resting ECG Reason for Exam: short of breath Patient Location: E HR:103 bpm ECG Measurements Heart Rate 103 AXIS NV 142 P 60 QRSd 93 QRS 65 QT 333 T19 QTc 436 Conclusion Sinus tachycardia...rate> 99 Inferior infarct, old...Q >35mS, II III aVF <Electronically signed by Tristen Abrams M.D. in [place]> E-Sign Date: 08/09/23 E-Sign Time: 2234 ADDENDUM APPROVED REPORT Exam: Resting ECG Reason for Exam: short of breath Patient Location: E HR:103 bpm ECG Measurements Heart Rate 103 AXIS NV 142 P 60 QRSd 93 QRS 65 QT 333 T19 QTc 436 Conclusion Sinus tachycardia...rate> 99 Inferior infarct, old...Q >35mS, II III aVF I have reviewed and interpreted ECG and agree with software generated interpretation. Electronically signed by: <Electronically signed by Ciara Waters M.D. in [place]> 08/10/23 0819 Cosigned by: Anesthesia Assessment and Plan Anesthesia History Personal History: PONV Family History: No Family History of Anesthesia Complications Exercise Tolerance Exercise Tolerance: Metabolic Equivalents>4 Pertinent Negatives Pertinent Negatives: No Major Cardiovascular Symptoms or Complaints and No History of CVA/TIA Cardiac & Pulmonary Exam Cardiac Exam: Normal S1/S2 Heart Sounds Pulmonary Exam: Clear Bilateral Breath Sounds Implantable Cardiac Device Does patient have a Pacemaker or an ICD?: No Airway Exam Known Difficult Airway: No Mallampati Class: 3 Mouth Opening: Normal (> 3cm) Thyromental Distance: Greater than 3 cm Neck Range of Motion: Limited ROM Neck Circumference: Normal Teeth Condition: Normal Dentition ASA Classification ASA Score: ASA 2 Emergency Case?: No NPO Status NPO Status: NPO Clears >2 hours, Solids >8 hours Anesthesia Plan Resuscitation Status: Full Code Anesthesia Technique: General Anesthesia Airway Planned: Natural Airway Monitors Used: Standard Monitors Preoperative Comments:: 70 yo male for urgent EGD for progressive dysphagia PMH: Hiatal hernia, GERD (omeprazole), umbilical hernia, hematuria, PSH: Lap Choley
[2025-01-22 08:47] VITALS: BP 135/79; PULSE 83; RESP 14; TEMP 36.3; O2SAT 100
[2025-01-22] MEDS: Lactated Ringers 1,000 ML 80 ML IV (09:06)
[2025-01-22 09:34] VITALS: BMI 27.1
--- NOTE | 2025-01-22 09:44 | STOM_PTH ---
PATIENT: Kei Welch LOC: [facility] U#:[id number] AGE/SX: 74/M ROOM: RE01/22/[address]: Joseph Herring : 1950 BED: DIS: 01/22/2025 SPEC #: [id number] RECD: 01/22/25 12:33 STATUS: [facility] #: [id number] ANDRES: 01/22/25 09:[address]: Joseph Herring DEPT: Surgical Specimen RECD BY: Melita Schulz ENTERED: 01/22/25 12:34 SP TYPE: STOMACH OTHR DR: Danny Hale Tissues: 1 - STOMACH BIOPSY 2 - STOMACH BIOPSY 3 - STOMACH BIOPSY 4 - ESOPHAGUS BIOPSY 5 - ESOPHAGUS BIOPSY Procedures: GROSS AND MICRO LEVEL 4 IMMUNOPEROXIDASE STAIN Comments: [id number]
[2025-01-22 10:01] VITALS: BP 107/77; PULSE 90; RESP 16; TEMP 36; O2SAT 98
--- NOTE | 2025-01-22 10:04 | ENDO_ITS ---
Date of service: 01/22/25 Time of Service: 10:04 Endoscopy Report PROCEDURE DESCRIPTION: PROCEDURES PERFORMED: 1. EGD with biopsies 2. Snare polypectomy PREOPERATIVE DIAGNOSIS: Dysphagia POSTOPERATIVE DIAGNOSIS: Esophagus/GEJ mass(Siewart 1), stomach polyps, tiny sliding hiatal hernia SURGEON: Roberto Carlos Herring MD INDICATION FOR PROCEDURE: 74-year-old man has worsening dysphagia to solids and some weight loss. FINDINGS: D2/D3 = normal D1/bulb = normal - no ulcers or inflammation Pylorus = normal Antrum = normal appearance, no ulcers, cold forceps biopsies were taken to rule out H. pylori routinely Body = normal appearance, biopsies taken with cold forceps technique routinely Fundus = A few scattered benign?appearing polyps. The largest one was removed with snare technique to confirm histology. Cardia = normal Hiatus = AFS grade 2 with partially-disrupted flap valve on respiratory variation, very small type I sliding hiatal hernia(<1cm slide) GE junction = at and extending above the GE junction is a circumferential mass of tissue extending about 2-3cm proximal. Visually, it is extremely suspicious for GEJ/esophagus cancer. Multiple biopsies were taken from all quadrants. Distal esophagus = no visible inflammation, no obvious esophagitis, no Ann ett's, no stricture. I took biopsies here ABOVE the GEJ mass where the esophagus otherwise looks pretty normal. Mid esophagus = normal Proximal esophagus/hypopharynx/vocal cords = normal SURVEILLANCE-INTERVAL/FOLLOW-UP: Likely referral to thoracic surgery - pending path results. Specimens: Yes EBL: Minimal COMPLICATIONS: None Procedure in detail: The patient gave written consent and was in agreement with the indications, the potential risks as well as the benefits of the procedure. The patient was taken to the endoscopy suite and laid on their left side. Anesthesia was given which was tolerated well. We performed a timeout and we are in agreement I started the procedure. A well-lubricated endoscope was gently and carefully advanced down the esophagus, into the stomach and through the pylorus into the duodenum. The scope was then slowly withdrawn with the above-noted findings/interventions. The patient tolerated the procedure well and there were no complications.
--- NOTE | 2025-01-22 10:10 | W.ANESPOSTOP ---
Postoperative Evaluation Date, Time and Location Date Performed: 01/22/25 Time Performed: 10:10 Patient Location: Day Surgery Unit Vital Signs Most Recent Imported Vital Signs: Most Recent Vital Signs Temp Pulse Resp BP Pulse Ox 36.0 C L 90 16 107/77 98 01/22/25 10:01 01/22/25 10:01 01/22/25 10:01 01/22/25 10:01 01/22/25 10:01 Pain Score Most Recent Pain Score: Most Recent Pain Score Pain Level 0 01/22/25 10:01 Assessment Mental Status: Awake (Alert & Oriented to Patient Baseline) Airway and Respiratory Function: Patent airway with normal (patient baseline) respiratory exam Cardiovascular Function: Hemodynamically Stable Hydration Status: Adequately Hydrated Nausea & Vomiting: No Nausea or Vomiting Pain: Pt. Denies Any Pain Peripheral Nerve Block: Patient did not receive a nerve block Postoperative Comments:: Esophageal mass with food in esophagus. Discussion with patient by surgeon to occur. Awake and alert, protecting airway.
--- NOTE | 2025-01-22 10:12 | W.PM.DSUDISC ---
Date of service: 01/22/25 Discharge Plan Disposition Patient Disposition: Home Condition: Good Discharge Details Attending Provider: Joseph Herring Primary Care Provider: Danny Hale Home Meds and New Rx's Prescriptions: No Action omeprazole 20 mg capsule,delayed release(DR/EC) 20 mg PO DAILY Discharge Instructions Additional Instructions: FINDINGS: There is a large abundance of tissue growing at the end of your esophagus which is causing the swallowing problems. This tissue is concerning for possibly being a tumor because of how it appears. To assess that, multiple biopsies were taken of it and we will let you know what those results show promptly. Everything else otherwise looks normal. Stand Alone Forms: Anesthesia Discharge Inst., DSU Post EGD Instructions, Stone Holden (DSU) Activity:: Activity as Tolerated Diet:: As Tolerated
[2025-01-22 10:36] VITALS: BP 111/78; PULSE 67; RESP 16; TEMP 36.4; O2SAT 99
== END 2025-01-22 11:00 | disposition home or self-care (01) ==
PROVIDERS: PCP Physician Assistant Medical; Visit Provider Student in an Organized Health Care Education/Training Program
PROC: 0DJ68ZZ Inspection of Stomach, Via Natural or Artificial Opening Endoscopic (ICD-10-PCS; CPT 43235; principal; 2025-01-22 09:30)
DX: C16.0 Malignant neoplasm of cardia (principal); R13.10 Dysphagia, unspecified; K44.9 Diaphragmatic hernia without obstruction or gangrene; K31.7 Polyp of stomach and duodenum
CPT/HCPCS: 43251; 43239; 88305; 88361; J2704

== ENCOUNTER 2025-01-30 10:45 | Outpatient (CLI) | payer MEDICARE, SELFPAY ==
[2025-01-30] MEDS: Barium Sulfate 2% W/V-Berry Smoothie 450 ML BTL PO (14:19)
[2025-01-30 14:21] LABS: Estimated GFR 90.18 (mL/min/1.73m2)
[2025-01-30] MEDS: Normal Saline - Diluent 50 ML VIAL IJ (15:53)
[2025-01-30] MEDS: Normal Saline Flush 10 ML SYR IVP (15:54)
[2025-01-30] MEDS: Omnipaque 350 MG/ML 100 ML BTL IJ (15:54)
--- NOTE | 2025-01-30 16:00 | DI.CT_ITS ---
Exam(s) CT CHEST/ABD W EXAM: CT CHEST/ABD W CLINICAL HISTORY: Esophagus adenoCA staging w BOTH oral and iv contr TECHNIQUE: Imaging Protocol: Axial computed tomography images with coronal and sagittal reformatted images were created and reviewed. Lung Computer Aided Detection (CAD) was utilized. CONTRAST MATERIAL: Intravenous: Omnipaque 350 contrast volume:75 mL Oral: Yes COMPARISON: CT ABD/PELVIS WO W CONTRAST from 11/03/[address] ABDOMEN PELVIS WO from 07/30/2023 CR,XR XR CHEST 1V IN DI DEPT from 07/30/2023 FINDINGS: CHEST: Tracheobronchial tree: Patent where visualized. No evidence of bronchiectasis. Pulmonary parenchyma: No consolidation or dominant measurable mass. No architectural distortion. Visualized thyroid gland: There are few tiny nodules in the right lobe of the thyroid gland. They are too small for further characterization. No follow-up is recommended. Mediastinum and Briseyda: No dominant adenopathy or fluid collection. There is thickening of the wall of the distal esophagus. This measures 5.6 cm in length. This would appear to be consistent with the patient's known esophageal carcinoma. Pleura: No effusion or pneumothorax. Heart: Mild cardiomegaly. Coronary artery calcifications are present. No pericardial effusion. Pulmonary arteries: No pulmonary emboli are identified. Aorta: The ascending thoracic aorta measures 4 x 3.7 cm. There is no evidence of dissection. Atherosclerotic calcification is present. Lymph nodes: Within normal limits. Soft tissues: Mild gynecomastia, right greater than left. Bones:Within normal limits for the patient's age. ABDOMEN: Liver: Normal density. There is a stable tiny hypodensity in the right lobe of the liver (series 2, image 15). This is unchanged dating back to the CT examination from 11/03/2012. No suspicious hepatic masses are seen. Portal, Superior Mesenteric, and Splenic Veins: Unremarkable. Gallbladder and Biliary Tract: Status post cholecystectomy. No significant biliary ductal dilatation is present. Pancreas: Normal density, no abnormal calcifications or inflammatory process. Spleen: Normal. Adrenals: No masses seen. Kidneys: Normal size, contour and axis. No radiodense stones or obstructive uropathy. Small bilateral renal cysts. No follow-up is recommended. Abdominal Aorta: Abdominal portion non-dilated. Atherosclerotic calcification is present. Bowel: No obstruction or bowel wall thickening. Appendix is unremarkable. Peritoneal Cavity: No ascites, collection or mesenteric inflammatory response. No free air. Lymph Nodes: There are mildly enlarged lymph nodes seen at the gastroesophageal junction. Bones: Within normal limits for the patient's age. Soft Tissues: Unremarkable. Bladder: The visualized portion of the dome of the urinary bladder is unremarkable. IMPRESSION: 1. Distal esophageal mass measuring 5.6 cm in length which would be consistent with the patient's known esophageal carcinoma. 2. Mildly enlarged lymph nodes near the gastroesophageal junction. 3. No evidence of pulmonary metastatic disease. 4. No evidence of a hepatic mass/metastatic disease. 5. Unremarkable CT scan of the chest. RADIATION DOSE DELIVERED: 534.75mGy.cm Total DLP DATA REPOSITORY: All CT scans at this facility are submitted to the National Radiology Data Registry (NRDR) Dose Index Registry (DIR) with the [employer] (A[employer]). RADIATION OPTIMIZATION: All CT scans at this facility use at least one of these dose optimization techniques: automated exposure control; mA and/or kV adjustment per patient size (includes targeted exams where dose is matched to clinical indication); or iterative reconstruction.
== END 2025-01-30 11:05 ==
LOC: DI 10:46
PROVIDERS: PCP Physician Assistant Medical; Visit Provider Student in an Organized Health Care Education/Training Program
DX: C15.9 Malignant neoplasm of esophagus, unspecified (principal)
CPT/HCPCS: 71260; 74160; 82565; J3490

== ENCOUNTER → 2025-02-05 14:36 | Outpatient (BNVA) | payer MEDICARE, SELFPAY | PROVIDERS: PCP Physician Assistant Medical; Referring Provider Physician Assistant Medical; Visit Provider Student in an Organized Health Care Education/Training Program | DX: C15.5 Malignant neoplasm of lower third of esophagus (principal); R13.10 Dysphagia, unspecified | CPT/HCPCS: 99215 ==

== ENCOUNTER 2025-04-03 00:20 | Outpatient (CLI) | payer MEDICARE, SELFPAY ==
[2025-04-03 09:29] LABS: Abs Immature Grans 0.02 10^3/uL (0.0-0.06); HCT 43.5 % (40.0-50.0); HGB 14.1 g/dL (13.5-17.5); Immature Grans % 0.3 %; MCH 28.7 pg (27.0-33.0); MCHC 32.4 % (32.0-36.0); MCV 88 fL (80-95); MPV 9.4 fL (8.0-11.0); Platelet Count 164 10^3/uL (130-400); RBC 4.92 10^6/uL (4.36-5.78); RDW 12.8 % (11.8-14.1); RDW-SD 41.6 fL; WBC 5.95 10^3/uL (4.4-10.8)
[2025-04-03 09:47] LABS: ALT 17 U/L (10-49); AST 16 U/L (<34); Albumin 4.2 g/dL (3.2-5.0); Alkaline Phosphatase 106 U/L (46-116); Anion Gap 5.4 mmol/L (3-11); BUN 18 mg/dL (9-23); Bilirubin, Total 0.8 mg/dL (0.2-1.2); CO2 29.6 mmol/L (20.0-31.0); Calcium 9.2 mg/dL (8.3-10.6); Chloride 107 mmol/L (98-107); Glucose 104 mg/dL (74-106); Magnesium 1.9 mg/dL (1.6-2.6); Potassium 4.3 mmol/L (3.5-5.1); Sodium 142 mmol/L (136-145); Total Protein 7.1 g/dL (5.7-8.2)
== END 2025-04-03 00:21 | disposition home or self-care (01) ==
LOC: LBO 00:20
PROVIDERS: PCP Physician Assistant Medical; Visit Provider Internal Medicine Medical Oncology
DX: C16.0 Malignant neoplasm of cardia (principal)
CPT/HCPCS: 36415; 80053; 83735; 85025